=== PATIENT | female | born 1970 | race Caucasian/White ===

== ENCOUNTER 2018-10-29 12:25 | Emergency (ER) | payer MEDICARE, OTHER ==
[~2018-10-29] VITALS: Ht 167.6 cm; Wt 90.7 kg
--- NOTE | 2018-10-29 12:39 | ED Lower Extremity ---
General Stated Complaint: ANKLE PAIN Source: patient Exam Limitations: no limitations History of Present Illness Date Seen by Provider: Oct 29, 2018 Time Seen by Provider: 12:37 Initial Comments To ER with reports of right ankle pain. Insidious onset 2 days ago at work for [employer]. Pain is at the medial right ankle normal bilateral. No other complaints of pain or injury. No history of this. Onset: just prior to arrival Severity: moderate Pain/Injury Location: right ankle Method of Injury: unknown Modifying Factors: Worse With Movement Allergies and Home Medications Home Medications Hydrocodone/Acetaminophen 1 Each Tablet, 1 TAB PO Q4-6HR Prescribed by: KATHY NICE on 10/29/18 1325 Patient Home Medication List Home Medication List Reviewed: Yes Review of Systems Constitutional: see HPI EENTM: see HPI Respiratory: no symptoms reported Cardiovascular: no symptoms reported Genitourinary: no symptoms reported Musculoskeletal: see HPI Skin: no symptoms reported Psychiatric/Neurological: No Symptoms Reported Past Onkqzcv-Vzzbpe-Aqwpsw Hx Patient Social History Recent Foreign Travel: No Contact w/Someone Who Travel: No Physical Exam Vital Signs Capillary Refill : Height, Weight, BMI Height: '" Weight: lbs. oz. kg; BMI Method: General Appearance: WD/WN, no apparent distress HEENT: PERRL/EOMI, normal ENT inspection Respiratory: no respiratory distress, no accessory muscle use Hips: bilateral hip non-tender, bilateral hip normal inspection, bilateral hip normal range of motion Legs: bilateral leg non-tender, bilateral leg normal inspection, bilateral leg normal range of motion Knees: bilateral knee non-tender, bilateral knee normal inspection, bilateral knee normal range of motion Ankles: right ankle other (swelling to the medial aspect of the right ankle, no bruising no erythema. Tender to palpation. The anterior posterior and lateral aspect of the ankle are unremarkable.) Feet: bilateral foot non-tender, bilateral foot normal inspection, bilateral foot normal range of motion Neurologic/Psychiatric: alert, normal mood/affect, oriented x 3 Skin: normal color, warm/dry Progress/Results/Core Measures Results/Orders My Orders Orders - KATHY NICE MANAGER OF COMPLIANCE Ankle, Right, 3 Views (10/29/18 12:36) Departure Communication (Admissions) 1336-given a stirrup ankle brace. Impression Primary Impression: Ankle swelling Qualified Codes: M25.471 - Effusion, right ankle Disposition: 01 HOME, SELF-CARE Condition: Stable Departure-Patient Inst. Decision time for Depature: 12:38 Referrals: [facility] (PCP) Primary Care Physician Patient Instructions: Ankle Fracture, Ankle Sprain Add. Discharge Instructions: 1. Return to ER for any concerns 2. Stay off the ankle as much as possible. Ice pack to the area 30 minutes every 1-2 hours for the next few days. Tylenol or ibuprofen for pain. Scripts Hydrocodone/Acetaminophen ([place] 5-325 Tablet) 1 Each Tablet 1 TAB PO Q4-6HR for Pain MDD 10 TABS for 7 Days, #14 TAB Prov: KATHY NICE APRN 10/29/18 Work/School Note: Work Release Form Date Seen in the Emergency Department: Oct 29, 2018 Return to Work: Nov 01, 2018 KATHY NICE APRN Oct 29, 2018 12:39
--- NOTE | 2018-10-29 13:12 | Diagnostic Imaging Report ---
EXAMINATION: Right ankle at 12:50 p.m. INDICATION: Ankle pain. FINDINGS: Three views were obtained. There are no prior studies available for comparison. There is a small 3 mm calcification along the inferior margin of the medial malleolus. This finding may represent a small avulsion fracture although the age of this injury is indeterminate. There is soft tissue edema along the medial aspect of the ankle joint, however. No other fracture or acute bony abnormality is noted. The ankle mortise is not widened and the talar dome is smooth. IMPRESSION: 1. There is a small avulsion fracture along the inferior margin of the medial malleolus. The age of this injury however is indeterminate but could be acute/subacute in nature. Clinical follow-up is recommended. 2. There is no other acute bony abnormality appreciated. Dictated by: Dictated on workstation # [id number]
[2018-10-29] MEDS ORDERED: HYDR-4226 PO (13:25)
[2018-10-29 13:35] VITALS: BP 120/73
== END 2018-10-29 13:38 | disposition home or self-care (01) ==
LOC: EDUNIT# 12:25 → ER 12:27
DX: M25.471 Effusion, right ankle (principal)
CPT/HCPCS: 73610

== ENCOUNTER 2019-02-03 17:54 | Emergency (ER) | payer MEDICARE, OTHER ==
[~2019-02-03] VITALS: Ht 167 cm; Wt 90.9 kg
[~2019-02-03 17:54] MED LIST: HYDR-4226 PO
[2019-02-03] MEDS ORDERED: CEFD300C3 PO (18:57)
--- NOTE | 2019-02-03 18:57 | ED EENT ---
History of Present Illness General Chief Complaint: Ear Problems Stated Complaint: EARACHE Nursing Triage Note: Pt to triage with C/O left ear pain that radiates to jaw x 1 wk. Pt reports taking ibuprofen for pain, last taken 1600 today. Pt has Hx of ear infections. No discharge present at this time. Allergies and Home Medications Home Medications Hydrocodone/Acetaminophen 1 Each Tablet, 1 TAB PO Q4-6HR Prescribed by: KATHY NICE on 10/29/18 1325 Past Mvdanin-Suuhru-Dbhmqk Hx Patient Social History Alcohol Use: Denies Use Recreational Drug Use: No Smoking Status: Current Everyday Smoker 2nd Hand Smoke Exposure: Yes Recent Foreign Travel: No Contact w/Someone Who Travel: No Recent Infectious Disease Expo: No Recent Hopitalizations: No Physical Abuse: No Sexual Abuse: No Mistreated: No Fear: No Seasonal Allergies Seasonal Allergies: No Past Medical History Surgeries: Yes (ectopic , back surgery) Respiratory: No Cardiac: Yes Hypertension Neurological: No Genitourinary: No Gastrointestinal: No Musculoskeletal: No Endocrine: No HEENT: No Cancer: No Psychosocial: No Integumentary: No Blood Disorders: No Physical Exam Vital Signs Vital Signs - First Documented 02/03/19 18:17 Temp 37.1 Pulse 80 Resp 19 B/P (MAP) 120/78 (92) Pulse Ox 98 O2 Delivery Room Air Height, Weight, BMI Height: 5'6.00" Weight: 200lbs. oz. 90.949860jp; 32.00 BMI Method:Stated Progress/Results/Core Measures Results/Orders Vital Signs/I&O 02/03/19 18:17 Temp 37.1 Pulse 80 Resp 19 B/P (MAP) 120/78 (92) Pulse Ox 98 O2 Delivery Room Air Blood Pressure Mean: 92 Departure Impression Primary Impression: Otitis media, left Qualified Codes: H66.005 - Acute suppurative otitis media without spontaneous rupture of ear drum, recurrent, left ear Disposition: 01 HOME, SELF-CARE Condition: Improved Departure-Patient Inst. Decision time for Depature: 18:55 Referrals: RADHA SANCHEZ MD (PCP) Primary Care Physician JÚNIOR MARTINEZ (Family) Primary Care Physician Patient Instructions: Ear Infections (Otitis Media) (DC) Add. Discharge Instructions: Alternate between Tylenol 650 mg and ibuprofen 600 mg every 4 hours for pain or fever. Take antibiotics as prescribed. Follow-up with your primary care provider if symptoms are not improving or worsen. Return to emergency department for new, urgent health care needs. All discharge instructions reviewed with patient and/or family. Voiced understanding. Scripts Cefdinir (Cefdinir) 300 Mg Capsule 300 MG PO BID, #14 CAP 0 Refills Prov: LILY MIRANDA 02/03/19 LILY MIRANDA Feb 03, 2019 18:57
[2019-02-03 19:01] VITALS: BP 120/78
== END 2019-02-03 19:01 | disposition home or self-care (01) ==
LOC: EDUNIT# 17:54 → ER 17:55
DX: H66.92 Otitis media, unspecified, left ear (principal); I10 Essential (primary) hypertension; F17.200 Nicotine dependence, unspecified, uncomplicated
CPT/HCPCS: 99281

== ENCOUNTER 2019-04-01 06:17 | Emergency (ER) | payer MEDICARE ==
[~2019-04-01] VITALS: Ht 167 cm; Wt 98.0 kg
[~2019-04-01 06:17] MED LIST changes: +CEFD300C3 PO
--- NOTE | 2019-04-01 06:36 | ED Cough/URI ---
General Chief Complaint: Cough/Cold/Flu Symptoms Stated Complaint: SOB,COUGHING,CONGESTION Nursing Triage Note: Pt ambulates to [facility] 6 with c/o nonproductive cough x 3 days, fever/chills and body aches. Sepsis Screen: No Definite Risk History of Present Illness Date Seen by Provider: Apr 01, 2019 Time Seen by Provider: 06:25 Initial Comments 48-year-old female presents with cough, fever, chills, body aches. Patient reports that last week she started having a cough with the fevers chills and body aches. That is have improved. She reports now that she has some chest tightness, some shortness of breath, body aches but the fevers resolved. She reports that the chest tightness is been there for about 3 days. She is a smoker. She denies any history of COPD her inhaler use. She denies any chest pain, nausea, vomiting. Allergies and Home Medications Allergies Coded Allergies: lamotrigine (Verified Allergy, Unknown, 02/03/19) Home Medications Albuterol Sulfate 2.5 Mg/3 Ml Vial.neb, 2.5 MG INH Q4H PRN for WHEEZING Prescribed by: SKYLAR MCDANIEL on 04/01/19713 Azithromycin 250 Mg Tablet, 250 MG PO UD TAKE 2 TABLETS ON DAY ONE THEN TAKE 1 TABLET DAILY FOR FOUR MORE DAYS Prescribed by: SKYLAR MCDANIEL on 04/01/19713 Cefdinir 300 Mg Capsule, 300 MG PO BID Prescribed by: LILY MIRANDA on 02/03/19 1857 Hydrocodone/Acetaminophen 1 Each Tablet, 1 TAB PO Q4-6HR Prescribed by: KATHY NICE on 10/29/18 1325 Prednisone 20 Mg Tab, 40 MG PO DAILY Prescribed by: SKYLAR MCDANIEL on 04/01/19713 Patient Home Medication List Home Medication List Reviewed: Yes Review of Systems Review of Systems Constitutional: chills, fever Respiratory: cough, short of breath Gastrointestinal: no symptoms reported Genitourinary: no symptoms reported Musculoskeletal: see HPI Skin: no symptoms reported; No rash Psychiatric/Neurological: No Symptoms Reported Past Kfyznce-Gxdcgm-Qxrwem Hx Past Med/Social Hx: Reviewed Nursing Past Med/Soc Hx Patient Social History Alcohol Use: Denies Use Recreational Drug Use: No Smoking Status: Current Everyday Smoker 2nd Hand Smoke Exposure: Yes Recent Foreign Travel: No Contact w/Someone Who Travel: No Recent Infectious Disease Expo: No Recent Hopitalizations: No Physical Abuse: No Sexual Abuse: No Mistreated: No Fear: No Seasonal Allergies Seasonal Allergies: No Past Medical History Surgeries: Yes (ectopic , back surgery) Respiratory: No Cardiac: Yes Hypertension Neurological: No Genitourinary: No Gastrointestinal: No Musculoskeletal: No Endocrine: No HEENT: No Cancer: No Psychosocial: No Integumentary: No Blood Disorders: No Physical Exam Vital Signs - First Documented 04/01/19 06:24 Temp 37.0 Pulse 78 Resp 17 B/P (MAP) 115/95 (102) Pulse Ox 96 O2 Delivery Room Air Capillary Refill : Less Than 3 Seconds Height: 5'6.00" Weight: 200lbs. oz. 90.823453os; 35.00 BMI Method:Stated General Appearance: WD/WN, no apparent distress HEENT: PERRL/EOMI Neck: supple Respiratory: no respiratory distress, no accessory muscle use; No respiratory distress; other (mild decreased breath sounds, sporadic) Cardiovascular: normal peripheral pulses, regular rate, rhythm Gastrointestinal: non tender, soft Neurologic/Psychiatric: syrup blender II-XII nml as tested, alert, oriented x 3 Skin: normal color, warm/dry Progress/Results/Core Measures Suspected Sepsis Recent Fever Within 48 Hours: No Infection Criteria Present: None New/Unexplained Altered Menta: No Sepsis Screen: No Definite Risk SIRS Temperature: Pulse: 78 Respiratory Rate: 17 Laboratory Tests 04/01/19 06:37: White Blood Count 8.4 Blood Pressure 115 /95 Mean: 102 Laboratory Tests 04/01/19 06:37: Creatinine 0.66, Platelet Count 217 Results/Orders Lab Results Laboratory Tests Test 04/01/19 06:37 Range/Units White Blood Count 8.4 4.3-11.0 10^3/uL Red Blood Count 4.32 L 4.35-5.85 10^6/uL Hemoglobin 13.4 11.5-16.0 G/DL Hematocrit 40 35-52 % Mean Corpuscular Volume 92 80-99 FL Mean Corpuscular Hemoglobin 31 25-34 PG Mean Corpuscular Hemoglobin Concent 34 32-36 G/DL Red Cell Distribution Width 13.2 10.0-14.5 % Platelet Count 217 130-400 10^3/uL Mean Platelet Volume 9.9 7.4-10.4 FL Neutrophils (%) (Auto) 55 42-75 % Lymphocytes (%) (Auto) 33 12-44 % Monocytes (%) (Auto) 9 0-12 % Eosinophils (%) (Auto) 2 0-10 % Basophils (%) (Auto) 0 0-10 % Neutrophils # (Auto) 4.7 1.8-7.8 X 10^3 Lymphocytes # (Auto) 2.8 1.0-4.0 X 10^3 Monocytes # (Auto) 0.8 0.0-1.0 X 10^3 Eosinophils # (Auto) 0.2 0.0-0.3 10^3/uL Basophils # (Auto) 0.0 0.0-0.1 10^3/uL Sodium Level 139 135-145 MMOL/L Potassium Level 3.3 L 3.6-5.0 MMOL/L Chloride Level 104 98-107 MMOL/L Carbon Dioxide Level 24 21-32 MMOL/L Anion Gap 11 5-14 MMOL/L Blood Urea Nitrogen 4 L 7-18 MG/DL Creatinine 0.66 0.60-1.30 MG/DL Estimat Glomerular Filtration Rate > 60 BUN/Creatinine Ratio 6 Glucose Level 96 70-105 MG/DL Calcium Level 9.1 8.5-10.1 MG/DL Micro Results Microbiology 04/01/19 Influenza Types A,B Antigen (MARGARITA) - Final, Complete My Orders Orders - SKYLAR MCDANIEL DO Basic Metabolic Panel (04/01/19 06:26) Cbc With Automated Diff (04/01/19 06:26) Influenza A And B Antigens (04/01/19 06:26) Chest Pa/Lat (2 View) (04/01/19 06:26) Ekg Tracing (04/01/19 06:37) Albuterol/Ipra Inhalation Soln (Duoneb I (04/01/19 07:15) Svn Small Volume Nebulizer (04/01/19 07:15) Vital Signs/I&O 04/01/19 04/01/19 06:24 06:28 Temp 37.0 Pulse 78 Resp 17 B/P (MAP) 115/95 (102) Pulse Ox 96 O2 Delivery Room Air Room Air Capillary Refill : Less Than 3 Seconds Blood Pressure Mean: 102 POS ECG Initial ECG Impression Date: Apr 01, 2019 Initial ECG Impression Time: 06:35 Initial ECG Rate: 70 Initial ECG Rhythm: Normal Sinus Initial ECG Impression: Nonspecific Changes Departure Impression Primary Impression: Pneumonitis Disposition: 01 HOME, SELF-CARE Condition: Stable Departure-Patient Inst. Referrals: RADHA SANCHEZ MD (PCP) Primary Care Physician JÚNIOR MARTINEZ (Family) Primary Care Physician Patient Instructions: Pneumonitis Scripts Prednisone (Prednisone) 20 Mg Tab 40 MG PO DAILY, #6 TAB 0 Refills Prov: SKYLAR MCDANIEL DO 04/01/19 Azithromycin (Azithromycin) 250 Mg Tablet 250 MG PO UD, #6 TAB TAKE 2 TABLETS ON DAY ONE THEN TAKE 1 TABLET DAILY FOR FOUR MORE DAYS Prov: SKYLAR MCDANIEL DO 04/01/19 Albuterol Sulfate (Albuterol Sulfate) 2.5 Mg/3 Ml Vial.neb 2.5 MG INH Q4H PRN for WHEEZING, #50 EA 1 Refill Prov: SKYLAR MCDANIEL DO 04/01/19 SKYLAR MCDANIEL DO Apr 01, 2019 06:36 POS
[2019-04-01 06:48] LABS: BASOPHILS % (AUTO) 0 % (0-10); EOSINOPHILS # (AUTO) 0.2 10^3/uL (0.0-0.3); EOSINOPHILS % (AUTO) 2 % (0-10); HEMATOCRIT 40 % (35-52); HEMOGLOBIN 13.4 G/DL (11.5-16.0); LYMPHOCYTES # (AUTO) 2.8 X 10^3 (1.0-4.0); LYMPHOCYTES % (AUTO) 33 % (12-44); MEAN CORPUSCULAR HEMOGLOBIN 31 PG (25-34); MEAN CORPUSCULAR HGB CONC 34 G/DL (32-36); MEAN CORPUSCULAR VOLUME 92 FL (80-99); MEAN PLATELET VOLUME 9.9 FL (7.4-10.4); MONOCYTES # (AUTO) 0.8 X 10^3 (0.0-1.0); MONOCYTES % (AUTO) 9 % (0-12); NEUTROPHILS # (AUTO) 4.7 X 10^3 (1.8-7.8); NEUTROPHILS % (AUTO) 55 % (42-75); PLATELET COUNT 217 10^3/uL (130-400); RED CELL DISTRIBUTION WIDTH 13.2 % (10.0-14.5); WHITE BLOOD COUNT 8.4 10^3/uL (4.3-11.0)
--- NOTE | 2019-04-01 06:58 | Diagnostic Imaging Report ---
INDICATION: Cough PA and lateral views of the chest are obtained. No previous studies available at this time for comparison. Heart size and pulmonary vascularity are within normal limits. There is mild asymmetric increased density in the right perihilar region which may be due to mild pneumonitis. No consolidation, pneumothorax or pleural fluid is identified. IMPRESSION: Probable mild right perihilar pneumonitis without other acute abnormality. Dictated by: Dictated on workstation # [id number]
[2019-04-01 07:05] LABS: BUN/CREATININE RATIO 6; CALCIUM 9.1 MG/DL (8.5-10.1); CARBON DIOXIDE 24 MMOL/L (21-32); CHLORIDE 104 MMOL/L (98-107); CREATININE SERUM 0.66 MG/DL (0.60-1.30); GFR ESTIMATED > 60; GLUCOSE 96 MG/DL (70-105); POTASSIUM 3.3 MMOL/L (3.6-5.0); SODIUM 139 MMOL/L (135-145)
[2019-04-01] MEDS ORDERED: ALBU2.5V4 INH (07:14)
[2019-04-01] MEDS ORDERED: AZIT250T12 PO (07:14)
[2019-04-01] MEDS ORDERED: PRD20T PO (07:14)
[2019-04-01] MEDS ORDERED: RT-ALBUTEROL/IPRATROPIUM 3 ML (DUONEB) VIAL INH ONE (07:15)
[2019-04-01 07:33] VITALS: BP 108/54
== END 2019-04-01 07:33 | disposition home or self-care (01) ==
LOC: EDUNIT# 06:17 → ER 06:20
DX: J18.9 Pneumonia, unspecified organism (principal); I10 Essential (primary) hypertension; F17.200 Nicotine dependence, unspecified, uncomplicated; Z88.8 Allergy status to other drugs, medicaments and biological substances
CPT/HCPCS: 36415; 71046; 80048; 85025; 87804; 93005

== ENCOUNTER 2021-10-24 07:09 | Observation (INO) | payer MEDICARE ==
[~2021-10-24] VITALS: Ht 167.6 cm; Wt 90.8 kg
[~2021-10-24 07:09] MED LIST changes: +ALBU2.5V4 INH; +AZIT250T12 PO; +PRD20T PO
[2021-10-24] MEDS ORDERED: ONDANSETRON 4 MG/2 ML (SDV) Z0FRAN IVP PRN (11:30)
[2021-10-24] MEDS ORDERED: PATIENT MAY USE OWN MEDS, ALL PO SCH (11:30)
--- NOTE | 2021-10-24 12:03 | History & Physical-Hospitalist ---
History of Present Illness HPI/Chief Complaint Patient is a 51-year-old female with past medical history of hypertension and tobacco abuse who presented to outside hospital due to chest pain. She states she and her significant other were driving back to their house around 4 AM when she developed some chest pain. She reports she had had intermittently throughout the day but did not think much of it. It worsened overnight and she decided to take 2 baby aspirin. It started to radiate down her left arm to her shoulders and upper jaw. She then became nauseous and diaphoretic and decided to seek evaluation in the emergency department. She was found to have an elevated high-sensitivity troponin and was transferred here for evaluation. She was given nitro which improved her symptoms though during our exam she states she still has some mild central chest discomfort. Date Seen 10/24/21 Time Seen by a Provider: 12:02 Attending Physician Kelvin Thomas MD PCP Admitting Physician: Cali Thayer MD Attending Physician: Cali Thayer MD Referring Physician Date of Admission Oct 24, 2021 at 10:14 Home Medications & Allergies Home Medications Reviewed patient Home Medication Reconciliation performed by pharmacy medication reconciliations automation control technician and/or nursing. Patients Allergies have been reviewed. Allergies Allergies Coded Allergies lamotrigine (Verified Allergy, Unknown, 02/03/19) Past Cqxvwij-Tncqjk-Ozuuxq Hx Patient Social History Smoking Status: Current Everyday Smoker Seasonal Allergies Seasonal Allergies: No Past Medical History Hypertension Blood Disorders: No surgery- ectopic Family Medical History Reviewed Nursing Family Hx Heart Disease, Stroke Review of Systems Constitutional: No chills; diaphoresis; No fever EENTM: no symptoms reported Respiratory: No cough, No dyspnea on exertion, No hemoptysis, No orthopnea, No short of breath Cardiovascular: see HPI, chest pain; No edema, No Hx of Intervention, No palpitations, No syncope Gastrointestinal: nausea Genitourinary: no symptoms reported Musculoskeletal: no symptoms reported Skin: no symptoms reported Psychiatric/Neurological: No Symptoms Reported Physical Exam Physical Exam Vital Signs Vital Signs - First Documented 10/24/21 10/24/21 10:19 11:25 Temp 35.9 Pulse 55 Resp 23 B/P (MAP) 115/67 Pulse Ox 96 O2 Delivery Room Air Capillary Refill : Height, Weight, BMI Height: 5'6.00" Weight: 200lbs. oz. 90.668233hb; 35.00 BMI Method:Stated General Appearance: No Apparent Distress, WD/WN, Obese HEENT: PERRL/EOMI, Moist Mucous Membranes Neck: Normal Inspection, Supple; No JVD Respiratory: Chest Non Tender, Lungs Clear, No Accessory Muscle Use, No Respiratory Distress Cardiovascular: Regular Rate, Rhythm, No Murmur Gastrointestinal: Normal Bowel Sounds, Non Tender, Soft Extremity: Normal Capillary Refill, Non Tender Neurologic/Psychiatric: Alert, Oriented x3, Normal Mood/Affect Skin: Normal Color, Warm/Dry Results Results/Procedures Labs Laboratory Tests 10/25/21 04:14 Patient resulted labs reviewed. Imaging: Reviewed Imaging Report Assessment/Plan Admission Diagnosis NSTEMI Admission Status: Observation Reason for Inpatient Admission: see below Assessment and Plan NSTEMI Symptoms sound cardiac in nature Troponin checked here and is 0.[address] Valdez who recommended echo and likely cath 324mg ASA given at outside facility Nitropaste in place Telemetry Echo ordered Tobacco abuse Recommended cessation Diagnosis/Problems Diagnosis/Problems (1) Tobacco abuse (2) NSTEMI (non-ST elevated myocardial infarction) (3) Chest pain Clinical Quality Measures Smoking Cessation Counseling: Counseling-Symptomatic: 3-10 Minutes Other Options Discussed smoking cessation. 35 pack year history. Started smoking around 17 years old. Not ready to quit due to stress in life. PAO ZEPEDA MD Oct 24, 2021 12:02
--- NOTE | 2021-10-24 13:38 | Consultation-Cardiology ---
HPI-Cardiology Cardiology Consultation: Date of Consultation 10/24/21 Date of Admission 10/24/21 Attending Physician Radha Thomas MD Admitting Physician Admitting Physician: Cali Thayer MD Attending Physician: Cali Thayer MD Consulting Physician RADHA SINGER JR, MD HPI: Time Seen by a Provider: 16:00 Chief Complaint: REASON FOR CONSULTATION: Chest pain and abnormal troponin level. I had the pleasure of seeing Felecia on the cardiac stepdown unit at [facility] in [place], [place] today. She has no significant past medical history other than cigarette smoking. Early this morning she had [place] from [place]. While she was driving home she started developing subs ternal chest tightness associated with shortness of breath and diaphoresis. The chest discomfort persisted throughout her drive home. The chest discomfort radiated down her arms. By the time she got back to [place], [place], she still had chest discomfort and went to her local emergency room. During her evaluation she was found to have an elevated troponin level and was sent to our hospital for further evaluation. In the outside emergency room she was given sublingual nitroglycerin which helped bring her pain from a 20/10 down to a 5/10. She was then treated with nitroglycerin paste and her chest discomfort has come down to about a 1/10. However, the chest discomfort has never completely resolved. She does not recall ever having this sort of chest discomfort in the past. She did feel a little bit lightheaded but denies any syncope. She denies paroxysmal nocturnal dyspnea, orthopnea, palpitations, or lower extremity edema. After being admitted into our hospital, repeat troponin in our facility was also found to be elevated. Because of the chest discomfort and abnormal troponin level, a cardiology consultation was requested for consideration of cardiac catheterization. Certain portions of this document may have been dictated utilizing voice recognition technology. Inherent to this technology, typographical and grammatical errors may exist. As much as I am diligent to identify and correct these mistakes, some errors may remain in the document. Review of Systems-Cardiology Review of Systems Other comments Review of 10 organ systems is as per the history of present illness, otherwise negative. BYM-[id number]-[id number] Hx Patient Social History Smoking Status: Current Everyday Smoker 2nd Hand Smoke Exposure: Yes Past Medical History PMH As described under Assessment. Family Medical History Family Medical History: The patient does not know of any family history of premature coronary artery disease in first-degree relatives. Allergies and Home Medications Allergies Coded Allergies: lamotrigine (Verified Allergy, Unknown, 02/03/19) Patient Home Medication List Home Medication List Reviewed: Yes Ibuprofen (Ibuprofen) 200 Mg Tablet, 400-600 MG PO Q8H PRN for PAIN-MILD (1-4), (Reported) Entered as Reported by: BLAINE MANUEL on 10/24/21 1525 Last Action: Reviewed Discontinued Medications Albuterol Sulfate (Albuterol Sulfate) 2.5 Mg/3 Ml Vial.neb, 2.5 MG INH Q4H PRN for WHEEZING Discontinued Reason: No Longer Taking Prescribed by: SKYLAR MCDANIEL on 04/01/19713 Last Action: Discontinued Azithromycin (Azithromycin) 250 Mg Tablet, 250 MG PO UD Discontinued Reason: No Longer Taking Prescribed by: SKYLAR MCDANIEL on 04/01/19713 Last Action: Discontinued Cefdinir (Cefdinir) 300 Mg Capsule, 300 MG PO BID Discontinued Reason: Duplicate Order Prescribed by: LILY MIRANDA on 02/03/19 1857 Last Action: Discontinued Hydrocodone/Acetaminophen (Hydrocodone/Acetaminophen 5 MG/325 MG TAB) 1 Each Tablet, 1 TAB PO Q4-6HR Discontinued Reason: No Longer Taking Prescribed by: KATHY NICE on 10/29/18 1325 Last Action: Discontinued Prednisone (Prednisone) 20 Mg Tab, 40 MG PO DAILY Discontinued Reason: No Longer Taking Prescribed by: SKYLAR MCDANIEL on 04/01/19713 Last Action: Discontinued Exam Vital Signs Vital Signs Date Time Temp Pulse Resp B/P (MAP) Pulse Ox O2 Delivery O2 Flow Rate FiO2 10/24/21 16:00 36.1 56 18 116/75 98 Room Air Physical Exam General: Alert. No acute distress. Well nourished and appears stated age. She is overweight. Eye: Extraocular movements are intact. Conjunctivae are clear. There are no xanthelasma. HENT: Normocephalic. Atraumatic. Carotid pulsations 2/2 without bruits. Neck: Jugular venous pressure does not appear elevated. No thyromegaly appreciated. Respiratory: Lungs are clear to auscultation. Respirations are non-labored. Breath sounds are equal. Symmetrical chest wall expansion. Cardiovascular: Normal rate. Regular rhythm. No murmur. No gallop. Point of maximal impulse is not appear displaced. Good pulses equal in all extremities. No edema. Gastrointestinal: Soft. Normal bowel sounds. Skin: Skin turgor is normal. There is no pallor. Musculoskeletal: No kyphosis or scoliosis appreciated. Neurologic: Alert and oriented to person, place, time. Cranial nerves 3-12 appear grossly intact. The patient has good motor tone strength in the upper and lower extremities bilaterally. Psychiatric: Cooperative. Appropriate mood & affect. Labs Laboratory Tests Test 10/24/21 11:55 Range/Units Troponin I 0.245 H <0.028 NG/ML Radiology ECHOCARDIOGRAM (10/24/2021): 1. Left ventricle: The cavity size is normal. Wall thickness is normal. Systolic function is normal. The estimated ejection fraction is 50-55%. There were no regional wall motion abnormalities identified. Left ventricular diastolic function parameters are normal. 2. Right atrium: The right atrium is mildly dilated with an area of 19 cm. 3. Pulmonary arteries: The estimated pulmonary artery systolic pressure is 20 mmHg assuming a right atrial pressure of 5 mmHg. ECG Impression ECG Comment Sinus rhythm with nonspecific anterior T wave changes. Diagnosis/Problems Diagnosis/Problems (1) Chest pain Assessment & Plan: Exact etiology unclear. She has nonspecific T wave changes on her electrocardiogram but does have an elevated troponin level. This is concerning for an acute coronary syndrome. She has been treated with aspirin. Her chest discomfort has never completely resolved. In light of these findings, I recommend further evaluation with a cardiac catheterization. I have explained the benefits and risks of the procedure to the patient and she is in agreement to proceed. (2) Troponin level elevated Assessment & Plan: She may be suffering a non-ST elevation myocardial infa rction. We will proceed as above. (3) Abnormal electrocardiogram Assessment & Plan: As above, her electrocardiogram from our hospital shows some nonspecific anterior T wave changes. We will proceed with a cardiac catheterization as above. (4) Cigarette smoker Assessment & Plan: She needs to work on quitting smoking. She was counseled in this regard. RADHA SINGER JR, MD Oct 24, 2021 13:38
[2021-10-24] MEDS ORDERED: NS IV 1000 ML 1,000 ML IV ONE (14:00)
[2021-10-24] MEDS ORDERED: CATHETER FLUSH 10 ML SYR IV PRN (14:00)
[2021-10-24] MEDS ORDERED: NITROGLYCERIN 0.4 MG SL TABS BTL 25'S SL PRN (14:15)
[2021-10-24] MEDS ORDERED: IBUP-2473 PO (15:25)
--- NOTE | 2021-10-24 16:12 | Pre-Op Note & Conscious Sedat ---
Pre-Operative Progress Note H&P Reviewed The H&P was reviewed, patient examined and no changes noted. Date H&P Reviewed: Oct 24, 2021 Time H&P Reviewed: 16:12 Pre-Op Diagnosis: NSTEMI Conscious Sedation Pre-Proced ASA Score 2 For ASA 3 and 4: Consider anesthesia and medical clearance. Also, for patients with a history of failed moderate sedation consider anesthesia. Airway Lungs Heart ASA score ASA 1: a normal healthy patient ASA 2: a patient with a mild systemic disease (mid diabetes, controlled hypertension, obesity ASA 3: a patient with a severe systemic disease that limits activity (angina, COPD, prior Myocardial infarction) ASA 4: a patient with an incapacitating disease that is a constant threat to life (CHF, renal failure) ASA 5: a moribund patient not expected to survive 24 hrs. (ruptured aneurysm) ASA 6: a declared brain- patient whose organs are being harvested. For emergent operations, add the letter E after the classification Mallampati Classification Grade 2 Sedation Plan Analgesia, Amnesia, Plan communicated to team members, Discussed options with patient/fam, Discussed risks with patient/fam The patient is an appropriate candidate to undergo the planned procedure, sedation, and anesthesia. The patient immediately re-assessed prior to indication. RADHA SINGER JR, MD Oct 24, 2021 16:12
[2021-10-24] MEDS ORDERED: VERAPAMIL 5 MG/2 ML (CALAN) VIAL IV ONE (16:19)
[2021-10-24] MEDS ORDERED: HEParin 1000 UNIT/ML (10ML VIAL) FOR BOLUS ONE (16:20)
[2021-10-24] MEDS ORDERED: NITRO DRIP 25000 MCG/D5W 250 ML IV ONE (16:20)
[2021-10-24] MEDS ORDERED: fentaNYL INJ 100 MCG/2 ML AMP ONE (16:20)
[2021-10-24] MEDS ORDERED: LIDOCAINE 1% INJ 20 ML VIAL ONE (16:20)
[2021-10-24] MEDS ORDERED: MIDAZOLAM 5 MG/5 ML (VERSED) VIAL ONE (16:20)
[2021-10-24] MEDS ORDERED: HEParin (CATH LAB) 2,000 ML IV ONE (16:21)
[2021-10-24] MEDS ORDERED: TICAGRELOR 90 MG TABLET (BRILINTA) PO ONE (17:37)
[2021-10-24] MEDS ORDERED: NS IV 1000 ML 1,000 ML ONE (18:20)
--- NOTE | 2021-10-24 18:20 | Cardiac Cath Report ---
CARDIAC CATHETERIZATION DATE OF PROCEDURE: 10/24/2021 INDICATION: NSTEMI. HISTORY: The patient is a 51 year old female with no previously known history of coronary artery disease. Early this morning she presented to an outside spital with substernal chest discomfort associated with diaphoresis and shortness of breath. She was found to have an elevated high-sensitivity troponin level but no evidence of ischemic changes on her electrocardiogram. Due to persistent chest discomfort and the abnormal troponin level, she was transferred to our facility for further treatment. Soon after arrival at our facility, she was again found to have an elevated troponin level. Her chest discomfort had improved with topical nitrates but not completely resolved. Therefore, in light of the probable non-ST elevation myocardial infarction, she is now referred for further evaluation with a cardiac catheterization. Given her current clinical status, she is considered moderately frail. She has no his tory of heart failure. PROCEDURES PERFORMED: 1. Left heart catheterization with hemodynamic measurements. 2. Diagnostic [place] coronary angiography. 3. Drug-eluting stent placement to distal right coronary artery. This was the ischemia related vessel for the myocardial infarction. PROCEDURE DESCRIPTION: After informed consent and in the fasting state, left heart catheterization was performed through the right femoral artery utilizing a 6 [place] system by percutaneous approach. I did first access the right radial artery with a 6 [place] system by percutaneous approach but there was a significant amount of radial artery spasm and I could not even get good blood flow back through the sheath. Therefore, the sheath was removed and a radial band was applied for hemostasis. Standard 5 [place] Citizen Pam catheters were utilized for the diagnostic portion of the procedure. A 6 [place] JR4 guide catheter was utilized for the percutaneous coronary intervention. All catheters were exchanged over a guidewire. Following the procedure, a right femoral angiogram was performed which showed the right femoral artery to be free of significant disease and the sheath entered just above the bifurcation. A Mynx closure device was deployed with good hemostasis. RESULTS: HEMODYNAMICS: The aortic pressure was 119/55 mmHg. The left ventricular pressure was 135/0 mmHg with a left ventricular end-diastolic pressure of 17 mmHg. There was no significant pressure gradient upon pullback across the aortic valve. CORONARY ANGIOGRAPHY: Left main coronary artery: Long and free of significant disease. Left anterior descending coronary artery: Free of significant disease. There was a small second diagonal branch which contained a lucent 50% stenosis proximally with MARI-2 flow. However, this was approximately a 1.75 mm vessel. Left circumflex coronary artery: Small but free of significant disease. Right coronary artery: Dominant and there was a 40% stenosis in the midsegment followed by a 99% stenosis distally just proximal to the bifurcation with MARI-2 flow. PERCUTANEOUS CORONARY INTERVENTION: Percutaneous coronary intervention was carried out on the distal right coronary artery through a 6 [place] JR4 guide catheter. The lesion was successfully crossed with a Kerlink guidewire. I subsequently performed coronary angioplasty with a 2.5 x 12 mm Trek balloon at a pressure of 6 andreea for 2 inflations. Flow was improved. I subsequently deployed a 3 x 12 mm drug-eluting Xience Skypoint stent at a pressure of 16 andreea. Following coronary stent placement, there was 0% residual stenosis with MARI-3 flow. IMPRESSION: 1. Normal central aortic pressure with mildly elevated left ventricular end- diastolic pressure. 2. There was a 99% stenosis in the distal right coronary artery. This was the ischemia related vessel for the acute non-ST elevation myocardial infarction. 3. Status post drug-eluting stent placement to the distal right coronary artery with a 3 x 12 mm Xience Skypoint stent was 0% residual stenosis and MARI-3 flow. 4. There is moderate residual disease in a small diagonal branch and the mid right coronary artery as outlined above. 5. The patient is known to have normal left ventricular systolic function with an estimated ejection fraction of 50-55% by echocardiogram performed earlier today. Certain portions of this document may have been dictated utilizing voice recognition technology. Inherent to this technology, typographical and grammatical errors may exist. As much as I am diligent to identify and correct these mistakes, some errors may remain in the document. RADHA SINGER JR, MD Oct 24, 2021 18:20
[2021-10-24] MEDS: NS IV 1000 ML 1,000 ML IV SCH (18:53)
[2021-10-24] MEDS ORDERED: TICAGRELOR 90 MG TABLET (BRILINTA) PO SCH (21:00)
[2021-10-24] MEDS ORDERED: ROSUVASTATIN 20 MG (CRESTOR) TABLET PO SCH (21:00)
[2021-10-24] MEDS ORDERED: ENOXAPARIN 40 MG/0.4 ML (LOVENOX) SYR SC SCH (21:00)
[2021-10-25 04:26] LABS: HEMATOCRIT 39 % (35-52); HEMOGLOBIN 13.3 g/dL (11.5-16.0); MEAN CORPUSCULAR HEMOGLOBIN 31 pg (25-34); MEAN CORPUSCULAR HGB CONC 34 g/dL (32-36); MEAN CORPUSCULAR VOLUME 91 fL (80-99); PLATELET COUNT 225 10^3/uL (130-400); WHITE BLOOD COUNT 11.1 10^3/uL (4.3-11.0)
[2021-10-25 04:54] LABS: POTASSIUM 3.6 MMOL/L (3.6-5.0)
[2021-10-25 04:55] LABS: CALCIUM 8.7 MG/DL (8.5-10.1)
[2021-10-25 04:59] LABS: CREATININE SERUM 0.7 MG/DL (0.60-1.30)
[2021-10-25] MEDS: NS IV 1000 ML 1,000 ML IV SCH (05:57)
[2021-10-25] MEDS ORDERED: TICAGRELOR 90 MG TABLET (BRILINTA) PO SCH (06:00)
[2021-10-25] MEDS ORDERED: TICA90TA PO (08:08)
[2021-10-25] MEDS ORDERED: NITR0.4T42 SL (08:08)
[2021-10-25] MEDS ORDERED: ASPI-1238 PO (08:08)
[2021-10-25] MEDS ORDERED: CARV3.122 PO (08:08)
[2021-10-25] MEDS ORDERED: ROSU20TA32 PO (08:08)
--- NOTE | 2021-10-25 08:30 | Cardiology Progress Note ---
Progress Note-Cardiology Events since last exam Date Seen by Provider: Oct 25, 2021 Time Seen by Provider: 08:25 Events since last exam I am following her due to non-ST elevation myocardial infarction. Her chest discomfort resolved following the stent procedure. She denies dyspnea, palpitations, syncope, or ankle edema. Her femoral access site does not have any significant pain. Certain portions of this document may have been dictated utilizing voice recognition technology. Inherent to this technology, typographical and grammatical errors may exist. As much as I am diligent to identify and correct these mistakes, some errors may remain in the document. Vitals Last set of Vitals Signs Vital Signs 10/25/21 07:51 Temp 36.4 Pulse 63 Resp 16 B/P (MAP) 107/76 Pulse Ox 97 O2 Delivery Room Air Labs Labs Laboratory Tests 10/25/21 04:14 Exam Vital Signs Vital Signs Date Time Temp Pulse Resp B/P (MAP) Pulse Ox O2 Delivery O2 Flow Rate FiO2 10/25/21 07:51 36.4 63 16 107/76 97 Room Air Physical Exam General: Alert. No acute distress. She is obese. Eye: No xanthelasma. HENT: Normocephalic. Neck: Jugular venous pressure does not appear elevated. Respiratory: Lungs are clear to auscultation. Respirations are non-labored. Breath sounds are equal. Symmetrical chest wall expansion. Cardiovascular: Normal rate. Regular rhythm. No murmur. No gallop. No edema. Gastrointestinal: Soft. Normal bowel sounds. Skin: Warm. Dry. Neurologic: Alert and oriented to person, place, time. Cranial nerves 3-11 grossly intact. Psychiatric: Cooperative. Appropriate mood & affect. Labs Laboratory Tests Test 10/24/21 11:55 10/24/21 16:39 10/25/21 04:14 Range/Units Troponin I 0.245 H <0.028 NG/ML Urine Test NEGATIVE NEGATIVE White Blood Count 11.1 H 4.3-11.0 10^3/uL Red Blood Count 4.26 3.80-5.11 10^6/uL Hemoglobin 13.3 11.5-16.0 g/dL Hematocrit 39 35-52 % Mean Corpuscular Volume 91 80-99 fL Mean Corpuscular Hemoglobin 31 25-34 pg Mean Corpuscular Hemoglobin Concent 34 32-36 g/dL Red Cell Distribution Width 13.6 10.0-14.5 % Platelet Count 225 130-400 10^3/uL Mean Platelet Volume 10.0 9.0-12.2 fL Sodium Level 139 135-145 MMOL/L Potassium Level 3.6 3.6-5.0 MMOL/L Chloride Level 107 98-107 MMOL/L Carbon Dioxide Level 23 21-32 MMOL/L Anion Gap 9 5-14 MMOL/L Blood Urea Nitrogen 11 7-18 MG/DL Creatinine 0.70 0.60-1.30 MG/DL Estimat Glomerular Filtration Rate 106 BUN/Creatinine Ratio 16 Glucose Level 86 70-105 MG/DL Calcium Level 8.7 8.5-10.1 MG/DL Triglycerides Level 143 <150 MG/DL Cholesterol Level 233 H < 200 MG/DL LDL Cholesterol Direct 184 H 1-129 MG/DL VLDL Cholesterol 29 5-40 MG/DL HDL Cholesterol 42 40-60 MG/DL Radiology Electrocardiogram from this morning shows sinus rhythm with nonspecific inferior T wave changes. No Q waves. Diagnosis/Problems Diagnosis/Problems (1) Non-ST elevation myocardial infarction (NSTEMI), initial care episode Assessment & Plan: She suffered a non-ST elevation myocardial infarction due to subtotal occlusion of the distal right coronary artery that was treated with 1 drug-eluting stent. Her chest discomfort has resolved. She has a normal ejection fraction. She is not having any significant arrhythmias. She does have moderate residual disease in a small diagonal branch in the mid right coronary artery that will be treated medically. She is on aspirin, ticagrelor, carvedilol and rosuvastatin. From a cardiac standpoint, she can be discharged home. She can return to work on Friday. She should follow-up with me in my office in 1 month. I sent all of her cardiac prescriptions to her pharmacy in [place]. I told her that if she does not have health insurance within 30 days, then I can change the Brilinta over to clopidogrel but she will need to notify my office in advance. I did give her a coupon for 30 days free of Brilinta. This coupon is good for patients without insurance. (2) Abnormal electrocardiogram Assessment & Plan: Her electrocardiogram from this morning shows sinus rhythm with nonspecific inferior T wave changes as above. (3) Mixed hyperlipidemia Assessment & Plan: Her LDL level is markedly elevated. I have placed her on intensive dose statin medication. I will arrange for a follow-up lipid panel after I see her in the office. (4) Cigarette smoker Assessment & Plan: She needs to work on quitting smoking. She was counseled in this regard. RADHA SINGER JR, MD Oct 25, 2021 08:30
--- NOTE | 2021-10-25 08:43 | Discharge Summary ---
Diagnosis/Chief Complaint Date of Admission Oct 24, 2021 at 10:14 Date of Discharge Discharge Date: Oct 25, 2021 Admission Diagnosis NSTEMI Primary Care No,Local Physician Discharge Diagnosis (1) Non-ST elevation myocardial infarction (NSTEMI), initial care episode Assessment & Plan: She suffered a non-ST elevation myocardial infarction due to subtotal occlusion of the distal right coronary artery that was treated with 1 drug-eluting stent. Her chest discomfort has resolved. She has a normal ejection fraction. She is not having any significant arrhythmias. She does have moderate residual disease in a small diagonal branch in the mid right coronary artery that will be treated medically. She is on aspirin, ticagrelor, carvedilol and rosuvastatin. From a cardiac standpoint, she can be discharged home. She can return to work on Friday. She should follow-up with me in my office in 1 month. I sent all of her cardiac prescriptions to her pharmacy in [place]. I told her that if she does not have health insurance within 30 days, then I can change the Brilinta over to clopidogrel but she will need to notify my office in advance. I did give her a coupon for 30 days free of Brilinta. This coupon is good for patients without insurance. (2) Abnormal electrocardiogram Assessment & Plan: Her electrocardiogram from this morning shows sinus rhythm with nonspecific inferior T wave changes as above. (3) Mixed hyperlipidemia Assessment & Plan: Her LDL level is markedly elevated. I have placed her on intensive dose statin medication. I will arrange for a follow-up lipid panel after I see her in the office. (4) Cigarette smoker Assessment & Plan: She needs to work on quitting smoking. She was counseled in this regard. Discharge Summary Procedures/Consulations Dr Valdez-Cardiology Discharge Physical Exam Allergies: Coded Allergies: lamotrigine (Verified Allergy, Unknown, 02/03/19) Vitals & I&Os Vital Signs Date Time Temp Pulse Resp B/P (MAP) Pulse Ox O2 Delivery O2 Flow Rate FiO2 10/25/21 07:51 36.4 63 16 107/76 97 Room Air General Appearance: No Apparent Distress, WD/WN Cardiovascular: Regular Rate, Rhythm, No Murmur Neurologic/Psychiatric: Alert, Oriented x3 Hospital Course Patient was admitted to the hospital secondary to chest pain with elevated troponin concerning for an NSTEMI. Despite treatment with nitroglycerin her pain improved but was persistent and she had a troponin that was trending up. She was taken to [facility] which revealed a 99% lesion in the distal RCA which was stented. She tolerated this well and was discharged home in stable improved condition to follow-up with her primary care doctor and Dr. Valdez. She was instructed multiple times on the importance of smoking cessation as well. Labs (last 24 hrs) Laboratory Tests 10/24/21 11:55: Troponin I 0.245H 10/24/21 16:39: Urine Test NEGATIVE 10/25/21 04:14: White Blood Count 11.1H, Red Blood Count 4.26, Hemoglobin 13.3, Hematocrit 39, Mean Corpuscular Volume 91, Mean Corpuscular Hemoglobin 31, Mean Corpuscular Hemoglobin Concent 34, Red Cell Distribution Width 13.6, Platelet Count 225, Mean Platelet Volume 10.0, Sodium Level 139, Potassium Level 3.6, Chloride Level 107, Carbon Dioxide Level 23, Anion Gap 9, Blood Urea Nitrogen 11, Creatinine 0.70, Estimat Glomerular Filtration Rate 106, BUN/Creatinine Ratio 16, Glucose Level 86, Calcium Level 8.7, Triglycerides Level 143, Cholesterol Level 233H, LDL Cholesterol Direct 184H, VLDL Cholesterol 29, HDL Cholesterol 42 Patient resulted labs reviewed. Pending Labs Laboratory Tests 10/25/21 04:14: White Blood Count 11.1, Red Blood Count 4.26, Hemoglobin 13.3, Hematocrit 39, Mean Corpuscular Volume 91, Mean Corpuscular Hemoglobin 31, Mean Corpuscular Hemoglobin Concent 34, Red Cell Distribution Width 13.6, Platelet Count 225, Mean Platelet Volume 10.0, Sodium Level 139, Potassium Level 3.6, Chloride Level 107, Carbon Dioxide Level 23, Anion Gap 9, Blood Urea Nitrogen 11, Creatinine 0.70, Estimat Glomerular Filtration Rate 106, BUN/Creatinine Ratio 16, Glucose Level 86, Calcium Level 8.7, Triglycerides Level 143, Cholesterol Level 233, LDL Cholesterol Direct 184, VLDL Cholesterol 29, HDL Cholesterol 42 Imaging: Reviewed Imaging Report Discussion & Recommendations Discharge Planning: >30 minutes discharge planning Discharge Home Medications: Active Scripts Active Aspirin EC (Aspirin) 81 Mg Tablet.dr 81 Mg PO DAILY Carvedilol 3.125 Mg Tablet 3.125 Mg PO BID Nitroglycerin 0.4 Mg Tab.subl 0 Mg SL NEEDED PRN Rosuvastatin Calcium 20 Mg Tablet 20 Mg PO HS Brilinta (Ticagrelor) 90 Mg Tablet 90 Mg PO Q12H Reported Ibuprofen 200 Mg Tablet 400-600 Mg PO Q8H PRN Instructions to patient/family Please see electronic discharge instructions given to patient. Clinical Quality Measures Smoking Cessation Counseling: Counseling-Symptomatic: 3-10 Minutes PAO ZEPEDA MD Oct 25, 2021 08:43
--- NOTE | 2021-10-25 08:44 | Discharge Inst-Simple/Standard ---
Discharge Inst-Standard Discharge Medications New, Converted or Re-Newed RX: Transmitted to Pharmacy Patient Instructions/Follow Up Plan of Care/Instructions/FU: Please continue to take your medications as written. Please follow up with your primary care doctor to follow up this hospital stay. Activity as Tolerated: Yes Discharge Diet: Cardiac Diet Return to The Hospital For: Chest pain, shortness of breath, fever, weakness, if you feel you are getting worse. PAO ZEPEDA MD Oct 25, 2021 08:44
[2021-10-25] MEDS ORDERED: ASPIRIN E.C. 81 MG (ECOTRIN) TAB PO SCH (09:00)
== END 2021-10-25 10:05 | disposition home or self-care (01) ==
LOC: CSD 10:14
PROVIDERS: ADMIT Internal Medicine; ATTEND Internal Medicine
DX: I21.4 Non-ST elevation (NSTEMI) myocardial infarction (principal); E78.2 Mixed hyperlipidemia; I25.10 Atherosclerotic heart disease of native coronary artery without angina pectoris; R94.31 Abnormal electrocardiogram [ECG] [EKG]; F17.210 Nicotine dependence, cigarettes, uncomplicated; R77.8 Other specified abnormalities of plasma proteins
CPT/HCPCS: 80048; 80061; 84484; 84703; 85027; 93005 ×2; 93306; 93458; 96372; C1725; C1760; C1874; C1887; C1894; C9606; G0378; G0379; 36415

== ENCOUNTER 2022-02-06 21:49 | Observation (INO) | payer MEDICARE ==
[~2022-02-06] VITALS: Ht 167.7 cm; Wt 85.6 kg
[~2022-02-06 21:49] MED LIST changes: +ASPI-1238 PO; +CARV3.122 PO; +IBUP-2473 PO; +NITR0.4T42 SL; +ROSU20TA32 PO; +TICA90TA PO
[2022-02-06] MEDS ORDERED: ASPIRIN 81 MG CHEW (CHILDREN'S ASA) PO ONE (22:15)
[2022-02-06] MEDS ORDERED: CLOPIDOGREL 75 MG (PLAVIX) TABLET PO ONE ×2 (22:15→23:30)
--- NOTE | 2022-02-06 22:16 | ED Chest Pain ---
General Chief Complaint: Cough/Cold/Flu Symptoms Stated Complaint: CHEST PAIN Nursing Triage Note: PT ARRIVAL TO ER FROM WORK WITH COMPLAINT OF CHEST PAIN. PT STATES THAT SHE WAS WORKING WHEN THE PAIN STARTED. PAIN IS A HEAVINESS/PRESSURE IN LEFT CHEST AND SHOULDER AREA. PAIN AT 7/10. PAIN HAS BEEN CONSTANT. PATIENT DOES HAVE STENT THAT WAS PLACED IN OCTOBER OF THIS YEAR. 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 PATIENT DID TAKE 1/2 OF ADULT ASA PRIOR TO ARRIVAL. PT DENIES SOA, NAUSEA, OR VOMITING. Source: patient Exam Limitations: no limitations History of Present Illness Date Seen by Provider: Feb 06, 2022 Time Seen by Provider: 21:54 Initial Comments Patient to the ER by private conveyance from home chief complaint is having some tightness and pain in her left chest without any nausea. She does have some radiation to her left arm. She had a heart attack and stent placed in October, [address] Valdez. At that time she was having pain in the same place with radiation to both arms was much more severe. Today was a max of 8 out of 10 as she exerted herself. After she rested it is down to a 5 out of 10. She states that she took half of a 325 mg aspirin. She did not take any nitrogly cerin because it also drops her blood pressure. She has been out of her Plavix, statin and blood pressure medicines for the past 2 to 3 weeks. 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 She says work has been very busy and she was working very hard trying to get her work done prior to 1899 when the chest pain began. She had a drug-eluting stent placed in her distal right coronary artery for 99% stenosis. The patient does not follow with a primary care provider. She says she has been to [facility] 1 time for the walk-in clinic for an earache. Allergies and Home Medications Allergies Coded Allergies: coffee (Coffea arabica) (Unverified Allergy, Unknown, HIVES, 10/25/21) lamotrigine (Verified Allergy, Unknown, 02/03/19) Patient Home Medication List Home Medication List Reviewed: Yes Aspirin (Aspirin EC) 81 Mg Tablet., 81 MG PO DAILY Prescribed by: RADHA VALDEZ JR, MD on 10/25/21 0808 Carvedilol (Carvedilol) 3.125 Mg Tablet, 3.125 MG PO BID Prescribed by: RADHA VALDEZ JR, MD on 10/25/21 08 Ibuprofen (Ibuprofen) 200 Mg Tablet, 400-600 MG PO Q8H PRN for PAIN-MILD (1-4), (Reported) Entered as Reported by: BLAINE MANUEL on 10/24/21 1525 Nitroglycerin (Nitroglycerin) 0.4 Mg Tab.subl, 0 MG SL NEEDED PRN for chest pain Prescribed by: RADHA VALDEZ JR, MD on 10/25/21 08 Rosuvastatin Calcium (Rosuvastatin Calcium) 20 Mg Tablet, 20 MG PO HS Prescribed by: RADHA VALDEZ JR, MD on 10/25/21 08 Ticagrelor (Brilinta) 90 Mg Tablet, 90 MG PO Q12H Prescribed by: RADHA VALDEZ JR, MD on 10/25/21 08 Review of Systems Review of Systems Constitutional: No chills, No fever EENTM: No Blurred Vision, No Double Vision Respiratory: Denies Cough, Denies Shortness of Air, Denies SOA at Rest Cardiovascular: Denies Chest Pain, Denies Lightheadedness Gastrointestinal: Denies Constipated, Denies Diarrhea, Denies Nausea Genitourinary: Denies Discharge, Denies Drainage Musculoskeletal: No back pain, No joint pain Skin: No pruritus, No rash Psychiatric/Neurological: Denies Headache, Denies Numbness, Denies Paresthesia All Other Systems Reviewed Negative Unless Noted: Yes Past Afkvdve-Qjkqip-Lcgyqa Hx Patient Social History Tobacco Use?: Yes Tobacco type used: Cigarettes Smoking Status: Current Everyday Smoker Use of E-Cig and/or Vaping dev: No Substance use?: No Alcohol Use?: No Pt feels they are or have been: No Immunizations Up To Date Influenza Vaccine Up-to-Date: No; Not Current Seasonal Allergies Seasonal Allergies: No Past Medical History Surgeries: Yes (ectopic , back surgery) Respiratory: No Cardiac: Yes Hypertension Neurological: No Genitourinary: No Gastrointestinal: No Musculoskeletal: No Endocrine: No HEENT: No Cancer: No Psychosocial: No Integumentary: No Blood Disorders: No Family Medical History Heart Disease, Stroke Physical Exam Vital Signs Vital Signs - First Documented 02/06/22 21:53 Pulse 74 Resp 18 B/P (MAP) 124/91 (102) Pulse Ox 97 O2 Delivery Room Air Capillary Refill : Less Than 3 Seconds Height, Weight, BMI Height: 5'6.00" Weight: 200lbs. oz. [id number]; 32.32 BMI Method:Stated General Appearance: No Apparent Distress, WD/WN HEENT: PERRL/EOMI, Pharynx Normal, Moist Mucous Membranes Neck: Full Range of Motion, Normal Inspection, Non Tender Respiratory: Lungs Clear, Normal Breath Sounds, No Accessory Muscle Use, No Respiratory Distress Cardiovascular: Regular Rate, Rhythm, No Edema, Normal Peripheral Pulses Extremity: Normal Capillary Refill, Normal Inspection, No Pedal Edema Neurologic/Psychiatric: Alert, Oriented x3 Progress/Results/Core Measures Results/Orders Lab Results Laboratory Tests Test 02/06/22 21:58 Range/Units White Blood Count 8.3 4.3-11.0 10^3/uL Red Blood Count 4.90 3.80-5.11 10^6/uL Hemoglobin 14.7 11.5-16.0 g/dL Hematocrit 43 35-52 % Mean Corpuscular Volume 88 80-99 fL Mean Corpuscular Hemoglobin 30 25-34 pg Mean Corpuscular Hemoglobin Concent 34 32-36 g/dL Red Cell Distribution Width 13.2 10.0-14.5 % Platelet Count 255 130-400 10^3/uL Mean Platelet Volume 9.8 9.0-12.2 fL Immature Granulocyte % (Auto) 0 % Neutrophils (%) (Auto) 49 42-75 % Lymphocytes (%) (Auto) 41 12-44 % Monocytes (%) (Auto) 7 0-12 % Eosinophils (%) (Auto) 2 0-10 % Basophils (%) (Auto) 1 0-10 % Neutrophils # (Auto) 4.0 1.8-7.8 10^3/uL Lymphocytes # (Auto) 3.4 1.0-4.0 10^3/uL Monocytes # (Auto) 0.6 0.0-1.0 10^3/uL Eosinophils # (Auto) 0.2 0.0-0.3 10^3/uL Basophils # (Auto) 0.1 0.0-0.1 10^3/uL Immature Granulocyte # (Auto) 0.0 0.0-0.1 10^3/uL Prothrombin Time 12.9 12.2-14.7 SEC INR Comment 0.9 0.8-1.4 Activated Partial Thromboplast Time 28 24-35 SEC Sodium Level 141 135-145 MMOL/L Potassium Level 3.2 L 3.6-5.0 MMOL/L Chloride Level 106 98-107 MMOL/L Carbon Dioxide Level 24 21-32 MMOL/L Anion Gap 11 5-14 MMOL/L Blood Urea Nitrogen 12 7-18 MG/DL Creatinine 0.79 0.60-1.30 MG/DL Estimat Glomerular Filtration Rate 92 BUN/Creatinine Ratio 15 Glucose Level 92 70-105 MG/DL Calcium Level 9.4 8.5-10.1 MG/DL Corrected Calcium 9.2 8.5-10.1 MG/DL Magnesium Level 1.8 1.6-2.4 MG/DL Total Bilirubin 0.3 0.1-1.0 MG/DL Aspartate Amino Transf (AST/SGOT) 16 5-34 U/L Alanine Aminotransferase (ALT/SGPT) 11 0-55 U/L Alkaline Phosphatase 74 40-136 U/L Myoglobin 38.5 10.0-92.0 NG/ML Troponin I < 0.028 <0.028 NG/ML Total Protein 7.5 6.4-8.2 GM/DL Albumin 4.2 3.2-4.5 GM/DL My Orders Orders - PAPITO RUFF Ekg Tracing (02/06/22 21:51) Continuous Ekg Monitoring (02/06/22 21:51) Cbc With Automated Diff (02/06/22 22:07) Magnesium (02/06/22 22:07) Chest 1 View, Ap/Pa Only (02/06/22 22:07) Comprehensive Metabolic Panel (02/06/22 22:07) Myoglobin Serum (02/06/22 22:07) Protime With Inr (02/06/22 22:07) Partial Thromboplastin Time (02/06/22 22:07) O2 (02/06/22 22:07) Lipid Panel (02/07/22 06:00) Ed Iv/Invasive Line Start (02/06/22 22:07) Troponin I Jordy (02/06/22 22:07) Nitroglycerin 0.4 Mg Btl 25's (Nitrostat (02/06/22 22:15) Aspirin Chewable Tablet (Baby Aspirin Ch (02/06/22 22:15) Clopidogrel Tablet (Plavix Tablet) (02/06/22 22:15) Clopidogrel Tablet (Plavix Tablet) (02/06/22 23:30) Enoxaparin Injection (Lovenox Injection) (02/06/22 23:30) Medications Given in ED Current Medications Medications Dose Ordered Sig/Jocelyne Route Start Time Stop Time Status Last Admin Dose Admin Aspirin 162 mg ONCE ONCE PO 02/06/22 22:15 02/06/22 22:16 DC 02/06/22 22:26 162 MG Clopidogrel Bisulfate 75 mg ONCE ONCE PO 02/06/22 22:15 02/06/22 22:16 DC 02/06/22 22:26 75 MG Nitroglycerin 0.4 mg UD PRN SL 02/06/22 22:15 02/06/22 22:27 0.4 MG Vital Signs/I&O 02/06/22 21:53 Pulse 74 Resp 18 B/P (MAP) 124/91 (102) Pulse Ox 97 O2 Delivery Room Air Blood Pressure Mean: 102 Progress Progress Note #1: Time: 22:15 Progress Note We will give the patient Plavix, aspirin and check labs. She has a high risk given her cardiac equivalent risk factors and her very convincing exertion depe ndent chest pain. We will trial a dose of nitroglycerin. Based on her labs we will then call Dr. Adrian seek an observation for closer control of her symptoms. Progress Note #2: Time: 23:26 Progress Note After a single dose of nitroglycerin the patient was not having any more chest pain. Initial ECG Impression Date: Feb 06, 2022 Initial ECG Impression Time: 21:45 Initial ECG Rate: 73 Initial ECG Rhythm: Normal Sinus Initial ECG Intervals: Normal Initial ECG Impression: Normal Comment Normal sinus rhythm without clinically relevant ST elevation or depression. LVH noted. Diagnostic Imaging Diagonstic Imaging: Xray Plain Films/CT/US/NM/MRI: chest Comments [facility], [place] NAME: MAITE KLEIN [facility] REC#: [id number] PT STATUS: REG ER : 1970 PHYSICIAN: PAPITO RUFF MD ADMIT DATE: 02/06/22/ER Signed Date of Exam:02/06/22 CHEST 1 VIEW, AP/PA ONLY PATIENT HISTORY: Chest pain. TECHNIQUE: Single frontal view of the chest. COMPARISON: 04/01/2019 FINDINGS: The lung volumes are normal. No focal consolidation is seen. No large pleural effusion or pneumothorax is seen. The cardiomediastinal silhouette is normal in size and contour. No acute osseous abnormality is seen. IMPRESSION: No acute pulmonary abnormality seen. Dictated by: Dictated on workstation # [id number] Dict: 02/06/222243 Trans: 02/06/222248 CVB [id number] Interpreted by: ARLENE CLARKE MD Electronically signed by: ARLENE CLARKE MD 02/06/222248 Reviewed: Reviewed by Me Departure Communication (Admissions) Time/Spoke to Admitting Phy: 23:15 Discussed the case with Dr. Amezquita and she agrees to admit the patient with cardiology consult. Time/Spoke to Consulting Phy: 23:08 Discussed the case with Dr. Adrian, cardiology. He recommends we give her 300 mg of Plavix now, 325 mg of aspirin and start Lovenox 1 mg/kg. Put in consult in the morning for Dr. Valdez, cardiology. Impression Primary Impression: Unstable angina Disposition: ADMITTED INPATIENT Condition: Stable Admissions Decision to Admit Reason: Admit from ER (General) Decision to Admit/Date: Feb 06, 2022 Time/Decision to Admit Time: 23:00 Departure-Patient Inst. Referrals: NO,LOCAL PHYSICIAN (PCP/Family) Primary Care Physician PAPITO RUFF Feb 06, 2022 22:16
[2022-02-06 22:22] LABS: BASOPHILS # (AUTO) 0.1 10^3/uL (0.0-0.1); BASOPHILS % (AUTO) 1 % (0-10); EOSINOPHILS # (AUTO) 0.2 10^3/uL (0.0-0.3); EOSINOPHILS % (AUTO) 2 % (0-10); HEMATOCRIT 43 % (35-52); HEMOGLOBIN 14.7 g/dL (11.5-16.0); LYMPHOCYTES # (AUTO) 3.4 10^3/uL (1.0-4.0); LYMPHOCYTES % (AUTO) 41 % (12-44); MEAN CORPUSCULAR HEMOGLOBIN 30 pg (25-34); MEAN CORPUSCULAR HGB CONC 34 g/dL (32-36); MEAN CORPUSCULAR VOLUME 88 fL (80-99); MEAN PLATELET VOLUME 9.8 fL (9.0-12.2); MONOCYTES # (AUTO) 0.6 10^3/uL (0.0-1.0); MONOCYTES % (AUTO) 7 % (0-12); NEUTROPHILS % (AUTO) 49 % (42-75); PLATELET COUNT 255 10^3/uL (130-400); WHITE BLOOD COUNT 8.3 10^3/uL (4.3-11.0)
[2022-02-06 22:26] LABS: ALBUMIN 4.2 GM/DL (3.2-4.5)
[2022-02-06 22:27] LABS: POTASSIUM 3.2 MMOL/L (3.6-5.0)
[2022-02-06] MEDS: NITROGLYCERIN 0.4 MG SL TABS BTL 25'S SL PRN ×2 (22:27→23:57)
[2022-02-06 22:28] LABS: CALCIUM 9.4 MG/DL (8.5-10.1)
[2022-02-06 22:29] LABS: INR 0.9 (0.8-1.4); PROTHROMBIN TIME PATIENT 12.9 SEC (12.2-14.7); TOTAL PROTEIN 7.5 GM/DL (6.4-8.2)
[2022-02-06 22:31] LABS: BILIRUBIN,TOTAL 0.3 MG/DL (0.1-1.0)
[2022-02-06 22:33] LABS: CREATININE SERUM 0.79 MG/DL (0.60-1.30)
[2022-02-06 22:35] LABS: MAGNESIUM 1.8 MG/DL (1.6-2.4)
--- NOTE | 2022-02-06 22:46 | Diagnostic Imaging Report ---
PATIENT HISTORY: Chest pain. TECHNIQUE: Single frontal view of the chest. COMPARISON: 04/01/2019 FINDINGS: The lung volumes are normal. No focal consolidation is seen. No large pleural effusion or pneumothorax is seen. The cardiomediastinal silhouette is normal in size and contour. No acute osseous abnormality is seen. IMPRESSION: No acute pulmonary abnormality seen. Dictated by: Dictated on workstation # [id number]
[2022-02-06] MEDS ORDERED: ENOXAPARIN 100 MG/1 ML (LOVENOX) SYR SC ONE (23:30)
[2022-02-07] VITALS (10 sets, daily range): BP systolic 96–131; BP diastolic 61–86
[2022-02-07] MEDS ORDERED: morphine INJ 4 MG/ML 1 ML (VIAL/SYRINGE) IV PRN (00:45)
[2022-02-07] MEDS ORDERED: NITROGLYCERIN 0.4 MG SL TABS BTL 25'S SL PRN ×3 (00:45→09:15)
[2022-02-07] MEDS ORDERED: CATHETER FLUSH 10 ML SYR IVP PRN (00:45)
[2022-02-07] MEDS ORDERED: ACETAMINOPHEN 325 MG TABLET PO PRN (00:45)
[2022-02-07] MEDS ORDERED: ONDANSETRON 4 MG/2 ML (SDV) Z0FRAN IV PRN (00:45)
[2022-02-07] MEDS: CATHETER FLUSH 10 ML SYR IVP SCH ×2 (05:11→14:08)
[2022-02-07 05:48] LABS: CHLORIDE 105 MMOL/L (98-107); POTASSIUM 2.9 MMOL/L (3.6-5.0); SODIUM 140 MMOL/L (135-145)
[2022-02-07 05:50] LABS: CALCIUM 8.9 MG/DL (8.5-10.1); GLUCOSE 86 MG/DL (70-105)
[2022-02-07 05:52] LABS: CARBON DIOXIDE 25 MMOL/L (21-32)
[2022-02-07 05:54] LABS: CREATININE SERUM 0.71 MG/DL (0.60-1.30); GFR ESTIMATED 104
[2022-02-07 05:55] LABS: BUN/CREATININE RATIO 17
[2022-02-07 06:01] LABS: BASOPHILS # (AUTO) 0.1 10^3/uL (0.0-0.1); BASOPHILS % (AUTO) 1 % (0-10); EOSINOPHILS # (AUTO) 0.2 10^3/uL (0.0-0.3); EOSINOPHILS % (AUTO) 3 % (0-10); HEMATOCRIT 41 % (35-52); HEMOGLOBIN 13.6 g/dL (11.5-16.0); LYMPHOCYTES # (AUTO) 3.1 10^3/uL (1.0-4.0); LYMPHOCYTES % (AUTO) 46 % (12-44); MEAN CORPUSCULAR HEMOGLOBIN 30 pg (25-34); MEAN CORPUSCULAR HGB CONC 34 g/dL (32-36); MEAN CORPUSCULAR VOLUME 90 fL (80-99); MEAN PLATELET VOLUME 10.5 fL (9.0-12.2); MONOCYTES # (AUTO) 0.6 10^3/uL (0.0-1.0); MONOCYTES % (AUTO) 9 % (0-12); NEUTROPHILS # (AUTO) 2.9 10^3/uL (1.8-7.8); NEUTROPHILS % (AUTO) 42 % (42-75); PLATELET COUNT 213 10^3/uL (130-400); WHITE BLOOD COUNT 6.8 10^3/uL (4.3-11.0)
[2022-02-07 06:05] LABS: TRIGLYCERIDES 118 MG/DL (<150); VLDL CHOLESTEROL 24 MG/DL (5-40)
[2022-02-07 06:10] LABS: CHOLESTEROL 133 MG/DL (< 200)
[2022-02-07 06:11] LABS: HDL CHOLESTEROL 37 MG/DL (40-60)
[2022-02-07] MEDS ORDERED: POTASSIUM CL 10MEQ/50ML IVPB 50 ML IV SCH (08:00)
[2022-02-07] MEDS ORDERED: MAGNESIUM 1 GM/100 ML IVPB 100 ML IV SCH (08:00)
[2022-02-07] MEDS ORDERED: KCL 20 MEQ TAB (K-DUR) PO SCH (08:00)
[2022-02-07] MEDS: POTASSIUM CL 10MEQ/50ML IVPB 50 ML IV SCH ×5 (08:36→15:35)
[2022-02-07] MEDS: NS IV 500 ML 500 ML IV PRN ×2 (08:36→14:08)
--- NOTE | 2022-02-07 08:57 | Consultation-Cardiology ---
HPI-Cardiology Cardiology Consultation: Date of Consultation 02/07/22 Date of Admission 02/06/22 Attending Physician Neli,Local Physician Admitting Physician Admitting Physician: Shreya Amezquita DO Attending Physician: Shreya Amezquita DO Consulting Physician RADHA SINGER JR, MD HPI: Time Seen by a Provider: 09:00 Chief Complaint: REASON FOR CONSULTATION: Chest pain. I had the pleasure of seeing Felecia on the cardiac stepdown unit at [facility] in [place], [place] today. She is known to me from a previous hospitalization. She has a known history of coronary artery disease with a non- ST elevation myocardial infarction in October 2021 that was treated with 1 drug- eluting stent to the distal right coronary artery. She has moderate residual disease in a diagonal branch and mid right coronary artery. She had been doing well up until yesterday. Before she went to work, she had a brief episode of palpitations with the sensation of a rapid heartbeat which occurred at rest. She denies associated symptoms. This resolved spontaneously. 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 While she was at work she started developing substernal chest tightness. She has had this int ermittently ever since her heart attack but the episodes have been very brief and mild. Yesterday the chest discomfort was more intense and then radiated to her left arm and made her feel short of breath. She told her boss who then brought her to the emergency room for further evaluation. In the emergency room she was given a total of 3 sublingual nitroglycerin intermittently and the chest discomfort ultimately resolved. She was then admitted to the cardiac stepdown unit for observation. This morning, she denies any further chest discomfort. She does get some dyspnea on exertion from time to time but this has not been getting any worse than usual. She denies paroxysmal nocturnal dyspnea, orthopnea, lightheadedness, syncope, or ankle edema. About 2 weeks ago she ran out of her refills of clopidogrel and stopped this medication. She has still been taking her aspirin, carvedilol and rosuvastatin. She is still smoking about 1 pack of cigarettes per day. Because of the chest pain, a cardiology consultation was requested. Certain portions of this document may have been dictated utilizing voice recognition technology. Inherent to this technology, typographical and grammatical errors may exist. As much as I am diligent to identify and correct these mistakes, some errors may remain in the document. Review of Systems-Cardiology Review of Systems Other comments Review of 10 organ systems is as per the history of present illness, otherwise negative. All Other Systems Reviewed Negative Unless Noted: Yes XYJ-Ctmwrv-Esmruh Hx Patient Social History Smoking Status: Current Everyday Smoker 2nd Hand Smoke Exposure: Yes Have you traveled recently?: No Alcohol Use?: No Pt feels they are or have been: No Tobacco type used: Cigarettes Past Medical History PMH As described under Assessment. Family Medical History Family Medical History: The patient does not know of any family history of premature coronary artery disease in first-degree relatives. Allergies and Home Medications Allergies Coded Allergies: coffee (Coffea arabica) (Unverified Allergy, Unknown, HIVES, 10/25/21) lamotrigine (Verified Allergy, Unknown, 02/03/19) Patient Home Medication List Home Medication List Reviewed: Yes Aspirin (Aspirin EC) 81 Mg Tablet.dr, 81 MG PO DAILY, (Reported) Entered as Reported by: BLAINE MANUEL on 02/07/221052 Last Action: Reviewed Carvedilol (Carvedilol) 3.125 Mg Tablet, 3.125 MG PO BID, (Reported) Entered as Reported by: BLAINE MANUEL on 02/07/221052 Last Action: Reviewed Fluticasone Propionate (Flonase Allergy Relief) 50 Mcg/Actuation [place].susp, 1 S PRAY NSEACH BID, (Reported) Entered as Reported by: BLAINE MANUEL on 02/07/221052 Last Action: Reviewed Ibuprofen (Ibuprofen) 200 Mg Tablet, 800 MG PO Q8H PRN for PAIN-MILD (1-4), (Reported) Entered as Reported by: BLAINE MANUEL on 10/24/21 1525 Last Action: Reviewed Isosorbide Mononitrate (Isosorbide Mononitrate ER) 30 Mg Tab.er.24h, 30 MG PO DAILY, (Reported) Entered as Reported by: BLAINE MANUEL on 02/07/221052 Last Action: Reviewed Nitroglycerin (Nitroglycerin) 0.4 Mg Tab.subl, 0.4 MG SL UD PRN for CHEST PAIN, (Reported) Entered as Reported by: BLAINE MANUEL on 9/29/22 1053 Last Action: Reviewed Rosuvastatin Calcium (Rosuvastatin Calcium) 20 Mg Tablet, 20 MG PO HS, (Reported) Entered as Reported by: BLAINE MANUEL on 02/07/22 1053 Last Action: Reviewed Discontinued Medications Aspirin (Aspirin EC) 81 Mg Tablet.dr, 81 MG PO DAILY Discontinued Reason: No Longer Taking Prescribed by: RADHA SINGER JR, MD on 10/25/21807 Last Action: Discontinued Carvedilol (Carvedilol) 3.125 Mg Tablet, 3.125 MG PO BID Discontinued Reason: Duplicate Order Prescribed by: RADHA SINGER JR, MD on 10/25/21807 Last Action: Discontinued Nitroglycerin (Nitroglycerin) 0.4 Mg Tab.subl, 0 MG SL NEEDED PRN for chest pain Discontinued Reason: Duplicate Order Prescribed by: RADHA SINGER JR, MD on 10/25/21807 Last Action: Discontinued Rosuvastatin Calcium (Rosuvastatin Calcium) 20 Mg Tablet, 20 MG PO HS Discontinued Reason: Duplicate Order Prescribed by: RADHA SINGER JR, MD on 10/25/21807 Last Action: Discontinued Ticagrelor (Brilinta) 90 Mg Tablet, 90 MG PO Q12H Prescribed by: RADHA SINGER JR, MD on 10/25/21807 Last Action: Discontinued Exam Vital Signs Vital Signs Date Time Temp Pulse Resp B/P (MAP) Pulse Ox O2 Delivery O2 Flow Rate FiO2 02/07/22 08:00 96 Room Air 02/07/22 07:33 36.2 56 18 109/76 (87) Physical Exam General: Alert. No acute distress. Well nourished and appears stated age. She is overweight. Eye: Extraocular movements are intact. Conjunctivae are clear. There are no xanthelasma. HENT: Normocephalic. Atraumatic. Carotid pulsations 2/2 without bruits. Neck: Jugular venous pressure does not appear elevated. No thyromegaly appreciated. Respiratory: Lungs are clear to auscultation. Respirations are non-labored. Breath sounds are equal. Symmetrical chest wall expansion. Cardiovascular: Normal rate. Regular rhythm. No murmur. No gallop. Point of maximal impulse is not appear displaced. Good pulses equal in all extremities. No edema. Gastrointestinal: Soft. Normal bowel sounds. Skin: Skin turgor is normal. There is no pallor. Musculoskeletal: No kyphosis or scoliosis appreciated. Neurologic: Alert and oriented to person, place, time. Cranial nerves 3-12 appear grossly intact. The patient has good motor tone strength in the upper and lower extremities bilaterally. Psychiatric: Cooperative. Appropriate mood & affect. Labs Laboratory Tests Test 02/06/22 21:58 02/07/22 05:15 Range/Units White Blood Count 8.3 6.8 4.3-11.0 10^3/uL Red Blood Count 4.90 4.53 3.80-5.11 10^6/uL Hemoglobin 14.7 13.6 11.5-16.0 g/dL Hematocrit 43 41 35-52 % Mean Corpuscular Volume 88 90 80-99 fL Mean Corpuscular Hemoglobin 30 30 25-34 pg Mean Corpuscular Hemoglobin Concent 34 34 32-36 g/dL Red Cell Distribution Width 13.2 13.5 10.0-14.5 % Platelet Count 255 213 130-400 10^3/uL Mean Platelet Volume 9.8 10.5 9.0-12.2 fL Immature Granulocyte % (Auto) 0 0 % Neutrophils (%) (Auto) 49 42 42-75 % Lymphocytes (%) (Auto) 41 46 H 12-44 % Monocytes (%) (Auto) 7 9 0-12 % Eosinophils (%) (Auto) 2 3 0-10 % Basophils (%) (Auto) 1 1 0-10 % Neutrophils # (Auto) 4.0 2.9 1.8-7.8 10^3/uL Lymphocytes # (Auto) 3.4 3.1 1.0-4.0 10^3/uL Monocytes # (Auto) 0.6 0.6 0.0-1.0 10^3/uL Eosinophils # (Auto) 0.2 0.2 0.0-0.3 10^3/uL Basophils # (Auto) 0.1 0.1 0.0-0.1 10^3/uL Immature Granulocyte # (Auto) 0.0 0.0 0.0-0.1 10^3/uL Prothrombin Time 12.9 12.2-14.7 SEC INR Comment 0.9 0.8-1.4 Activated Partial Thromboplast Time 28 24-35 SEC Sodium Level 141 140 135-145 MMOL/L Potassium Level 3.2 L 2.9 L 3.6-5.0 MMOL/L Chloride Level 106 105 98-107 MMOL/L Carbon Dioxide Level 24 25 21-32 MMOL/L Anion Gap 11 10 5-14 MMOL/L Blood Urea Nitrogen 12 12 7-18 MG/DL Creatinine 0.79 0.71 0.60-1.30 MG/DL Estimat Glomerular Filtration Rate 92 104 BUN/Creatinine Ratio 15 17 Glucose Level 92 86 70-105 MG/DL Calcium Level 9.4 8.9 8.5-10.1 MG/DL Corrected Calcium 9.2 8.5-10.1 MG/DL Magnesium Level 1.8 1.8 1.6-2.4 MG/DL Total Bilirubin 0.3 0.1-1.0 MG/DL Aspartate Amino Transf (AST/SGOT) 16 5-34 U/L Alanine Aminotransferase (ALT/SGPT) 11 0-55 U/L Alkaline Phosphatase 74 40-136 U/L Myoglobin 38.5 10.0-92.0 NG/ML Troponin I < 0.028 < 0.028 <0.028 NG/ML Total Protein 7.5 6.4-8.2 GM/DL Albumin 4.2 3.2-4.5 GM/DL Triglycerides Level 118 <150 MG/DL Cholesterol Level 133 < 200 MG/DL LDL Cholesterol Direct 69 1-129 MG/DL VLDL Cholesterol 24 5-40 MG/DL HDL Cholesterol 37 L 40-60 MG/DL ECG Impression ECG Comment The first electrocardiogram in the emergency room on 02/06 showed sinus rhythm with left atrial abnormality and borderline left axis deviation at -23. The second electrocardiogram obtained early this morning on the cardiac stepdown unit showed sinus rhythm with left atrial abnormality and nonspecific anterior T wave changes which were new compared to the previous tracing. Repeat electrocardiogram from this morning shows sinus rhythm with left atrial abnormality and no significant T wave abnormalities. Diagnosis/Problems Diagnosis/Problems (1) Coronary artery disease with unstable angina pectoris Assessment & Plan: She had 2 negative troponin levels. I was concerned that she may have had some dynamic EKG changes in the anterior leads but some of this may have just been due to lead placement. I suspect her symptoms may have been related to stopping clopidogrel 2 weeks ago. I will obtain a follow-up echocardiogram. If there are no significant regional wall motion abnormalities, then she can probably be discharged home later. I will also start her on a low- dose of long-acting nitrates which I will continue for about the next month. (2) Mixed hyperlipidemia Assessment & Plan: Continue rosuvastatin. Her LDL level is well controlled. (3) Cigarette smoker Assessment & Plan: She needs to quit smoking. She has been counseled in this regard. (4) Obesity Assessment & Plan: She needs to work on weight loss. RADHA SINGER JR, MD Feb 07, 2022 08:57
[2022-02-07] MEDS ORDERED: ENOXAPARIN 40 MG/0.4 ML (LOVENOX) SYR SC SCH (09:00)
[2022-02-07] MEDS ORDERED: CLOPIDOGREL 75 MG (PLAVIX) TABLET PO SCH (09:00)
[2022-02-07] MEDS ORDERED: ASPIRIN E.C. 81 MG (ECOTRIN) TAB PO SCH ×2 (09:00)
[2022-02-07] MEDS ORDERED: ENOXAPARIN 100 MG/1 ML (LOVENOX) SYR SC SCH ×2 (09:00)
[2022-02-07] MEDS ORDERED: CLOPIDOGREL 300 MG (PLAVIX) TABLET PO NR (09:00)
[2022-02-07] MEDS ORDERED: NITR0.4T39 SL (10:53)
[2022-02-07] MEDS ORDERED: CARV3.122 PO (10:53)
[2022-02-07] MEDS ORDERED: ISOS30TA82 PO ×2 (10:53→11:08)
[2022-02-07] MEDS ORDERED: ASPI-1238 PO (10:53)
[2022-02-07] MEDS ORDERED: ROSU20TA32 PO (10:53)
[2022-02-07] MEDS ORDERED: FLUT9.9S NSEACH (10:53)
[2022-02-07] MEDS ORDERED: ISOSORBIDE MONONITRATE 30 MG (IMDUR) TAB PO NR (11:00)
[2022-02-07] MEDS ORDERED: CLOP75TA28 PO (11:08)
--- NOTE | 2022-02-07 15:10 | Short Stay Summary-Hospitalist ---
History of Present Illness HPI/Chief Complaint Felecia Callaway is a 51 year old female with PMH HTN, HLD, CAD, who presented with chest pain. She had radiation to her bilateral arms. She also had some nausea. She denies shortness of breath. She denies fevers and chills. Upon my exam, her chest pain is resolved. She is having no ongoing symptoms and she has returned to her baseline. Source: patient Exam Limitations: no limitations Date Seen 02/07/22 Time Seen by a Provider: 09:40 Attending Physician Neli,Local Physician PCP Admitting Physician: Shreya Amezquita DO Attending Physician: Shreya Amezquita DO Referring Physician Date of Admission Feb 06, 2022 at 23:25 Home Medications & Allergies Home Medications Reviewed patient Home Medication Reconciliation performed by pharmacy medication reconciliations registered respiratory technician and/or nursing. Patients Allergies have been reviewed. Allergies Allergies Coded Allergies coffee (Coffea arabica) (Unverified Allergy, Unknown, HIVES, 10/25/21) lamotrigine (Verified Allergy, Unknown, 02/03/19) Past Whawfsk-Ftiind-Cgaqcb Hx Patient Social History Tobacco Use?: Yes Tobacco type used: Cigarettes Smoking Status: Current Everyday Smoker Smokeless Tobacco Frequency: Never a User Use of E-Cig and/or Vaping dev: No Substance use?: No Alcohol Use?: No Pt feels they are or have been: No Immunizations Up To Date Tetanus Booster (TDap): Unknown Hepatitis A: Yes Hepatitis B: Yes Seasonal Allergies Seasonal Allergies: No Current Status status: No Advance Directives: No Communicates: Verbally Primary Language: Serbian Preferred Spoken Language: Serbian Is interpretation needed?: No Sensory deficits: Vision impairment Implanted or Applied Medical D: Stents Past Medical History Surgeries: Coronary Stent Coronary Artery Disease, Hypertension Blood Disorders: No surgery- ectopic Family Medical History Heart Disease, Stroke Review of Systems Constitutional: no symptoms reported EENTM: no symptoms reported Cardiovascular: chest pain Gastrointestinal: nausea Physical Exam Physical Exam Vital Signs Vital Signs - First Documented 02/06/22 21:53 Pulse 74 Resp 18 B/P (MAP) 124/91 (102) Pulse Ox 97 O2 Delivery Room Air Capillary Refill : Less Than 3 Seconds Height, Weight, BMI Height: 5'6.00" Weight: 200lbs. oz. 90.422911zd; 30.43 BMI Method:Stated General Appearance: No Apparent Distress, Obese HEENT: PERRL/EOMI, Pharynx Normal Neck: Normal Inspection, Supple Respiratory: Lungs Clear, Normal Breath Sounds, No Respiratory Distress Cardiovascular: Regular Rate, Rhythm, No Edema, No Murmur Gastrointestinal: Normal Bowel Sounds, Non Tender, Soft Extremity: Normal Inspection, No Pedal Edema Neurologic/Psychiatric: Alert, Oriented x3, Normal Mood/Affect Skin: Normal Color, Warm/Dry Results Results/Procedures Labs Laboratory Tests 02/06/22 21:58 02/07/22 05:15 Patient resulted labs reviewed. Imaging: Reviewed Imaging Report Short Stay Diagnosis Discharge Diagnosis-Short Stay Admission Diagnosis Chest pain Final Discharge Diagnosis Chest pain Conclusion Plan Chest pain CAD HTN HLD Troponins and EKG unremarkable Echo with normal EF, no wall motion abnormalities Chest pain resolved Cardiology consulted Continue ASA Started on Plavix Begin Imdur Contiue Coreg and statin Follow up in Cardiology clinic Establish with a PCP Diagnosis/Problems Diagnosis/Problems (1) Chest pain Status: Acute (2) CAD (coronary artery disease) Status: Acute (3) HTN (hypertension) Status: Chronic (4) HLD (hyperlipidemia) Status: Chronic Clinical Quality Measures AMI/AHF: ASA po Prior to arrival: Yes (162.5) Smoking Cessation Counseling: Counseling-Symptomatic: 3-10 Minutes SOFY THOMPSON MD Feb 07, 2022 15:10
[2022-02-07] MEDS ORDERED: ROSUVASTATIN 20 MG (CRESTOR) TABLET PO SCH (21:00)
[2022-02-08] MEDS ORDERED: ENOXAPARIN 40 MG/0.4 ML (LOVENOX) SYR SC SCH (09:00)
[2022-02-08] MEDS ORDERED: CLOPIDOGREL 75 MG (PLAVIX) TABLET PO SCH (09:00)
[2022-02-08] MEDS ORDERED: ISOSORBIDE MONONITRATE 30 MG (IMDUR) TAB PO SCH (09:00)
== END 2022-02-07 15:35 | disposition home or self-care (01) ==
LOC: EDUNIT# 21:49 → ER 21:50 → CSD 23:25 → EDLOC 23:25 → INTOOBSV 23:25
PROVIDERS: ADMIT Internal Medicine; ATTEND Internal Medicine
DX: R07.9 Chest pain, unspecified (principal); I25.10 Atherosclerotic heart disease of native coronary artery without angina pectoris; I10 Essential (primary) hypertension; E78.5 Hyperlipidemia, unspecified; F17.210 Nicotine dependence, cigarettes, uncomplicated
CPT/HCPCS: 71045; 80048; 80053; 80061; 83735 ×2; 83874; 84484 ×2; 85025 ×2; 85610; 85730; 93005 ×2; 93308; 96361; 96375; 96376; 99284; G0378; 36415

== ENCOUNTER 2022-09-17 22:37 | Emergency (ER) | payer SELFPAY ==
[~2022-09-17] VITALS: Ht 168 cm; Wt 86.0 kg
[~2022-09-17 22:37] MED LIST changes: +CLOP75TA28 PO; +FLUT9.9S NSEACH; +ISOS30TA82 PO; +NITR0.4T39 SL
--- NOTE | 2022-09-17 22:50 | ED Chest Pain ---
General Chief Complaint: Chest Pain Stated Complaint: CHEST PAIN Nursing Triage Note: Pt presents via ems with c/o chest pain that started at approx 1600 yesterday. She states she took ASA x2 and 1 nitro at 2216 and arrived pain free. Pt has a hx of DC on 10/22/21. Source: patient, EMS Exam Limitations: no limitations History of Present Illness Date Seen by Provider: September 17, 2022 Time Seen by Provider: 22:39 Initial Comments 52-year-old female with history of coronary artery disease with stents placed October of last year presents to the emergency department via EMS for chest pain. Symptoms started at 4:00 yesterday afternoon and has been relatively constant until she took a nitroglycerin about 30 minutes prior to arrival and she is now pain-free. She describes her pain as sharp stabbing in her mid central chest wi th radiation into the right anterior chest. No aggravating or alleviating factors. No associated symptoms. She took a full strength aspirin this evening. Did not feel similar to her heart attack type pain that she had a year ago. She denies any recent fevers chills cough. No known injuries. All other systems reviewed and negative except documented per HPI. Voice recognition software was used to help create this chart Allergies and Home Medications Allergies Coded Allergies: coffee (Coffea arabica) (Unverified Allergy, Unknown, HIVES, 10/25/21) lamotrigine (Verified Allergy, Unknown, 02/03/19) Patient Home Medication List Home Medication List Reviewed: Yes Aspirin (Aspirin EC) 81 Mg Tablet.dr, 81 MG PO DAILY, (Reported) Entered as Reported by: BLAINE MANUEL on 02/07/22 1053 Carvedilol (Carvedilol) 3.125 Mg Tablet, 3.125 MG PO BID, (Reported) Entered as Reported by: BLAINE MANUEL on 02/07/22 1053 Clopidogrel Bisulfate (Clopidogrel) 75 Mg Tablet, 75 MG PO DAILY Prescribed by: RADHA SINGER JR, MD on 02/07/22 1108 Fluticasone Propionate (Flonase Allergy Relief) 50 Mcg/Actuation [place].susp, 1 SPRAY NSEACH BID, (Reported) Entered as Reported by: BLAINE MANUEL on 02/07/22 1053 Ibuprofen (Ibuprofen) 200 Mg Tablet, 800 MG PO Q8H PRN for PAIN-MILD (1-4), (Rep orted) Entered as Reported by: BLAINE MANUEL on 10/24/21 1525 Isosorbide Mononitrate (Isosorbide Mononitrate ER) 30 Mg Tab.er.24h, 30 MG PO DAILY Prescribed by: RADHA SINGER JR, MD on 02/07/22 1108 Nitroglycerin (Nitroglycerin) 0.4 Mg Tab.subl, 0.4 MG SL UD PRN for CHEST PAIN, (Reported) Entered as Reported by: BLAINE MANUEL on 02/07/22 1053 Rosuvastatin Calcium (Rosuvastatin Calcium) 20 Mg Tablet, 20 MG PO HS, (Reported) Entered as Reported by: BLAINE MANUEL on 02/07/22 1053 Review of Systems Review of Systems Constitutional: see HPI Past Imzsgcp-Jqmoig-Dfgrhk Hx Patient Social History Tobacco Use?: No Use of E-Cig and/or Vaping dev: No Substance use?: No Alcohol Use?: No Immunizations Up To Date Influenza Vaccine Up-to-Date: No; Not Current Seasonal Allergies Seasonal Allergies: No Past Medical History Surgeries: Yes (ectopic , back surgery) Coronary Stent Respiratory: No Cardiac: Yes Coronary Artery Disease, Hypertension Neurological: No Genitourinary: No Gastrointestinal: No Musculoskeletal: No Endocrine: No HEENT: No Cancer: No Psychosocial: No Integumentary: No Blood Disorders: No Family Medical History Reviewed Nursing Family Hx Heart Disease, Stroke Physical Exam Vital Signs Vital Signs - First Documented 09/17/22 22:41 Temp 36.6 Pulse 68 Resp 16 B/P (MAP) 126/84 (98) Capillary Refill : Less Than 3 Seconds Height, Weight, BMI Height: 5'6.00" Weight: 200lbs. oz. 90.069447cg; 30.00 BMI Method:Stated General Appearance: No Apparent Distress, WD/WN HEENT: Normal ENT Inspection, Pharynx Normal Neck: Normal Inspection, Non Tender, Supple Respiratory: Chest Non Tender, Lungs Clear, Normal Breath Sounds, No Accessory Muscle Use, No Respiratory Distress Cardiovascular: Regular Rate, Rhythm, No Murmur, Normal Peripheral Pulses Gastrointestinal: Normal Bowel Sounds, No Organomegaly, No Pulsatile Mass, Non Tender, Soft Extremity: Normal Capillary Refill, Normal Inspection, Normal Range of Motion, Non Tender, No Calf Tenderness Neurologic/Psychiatric: Alert, Oriented x3, Normal Mood/Affect Skin: Normal Color, Warm/Dry Progress/Results/Core Measures Results/Orders Lab Results Laboratory Tests Test 09/17/22 22:45 Range/Units White Blood Count 9.0 4.3-11.0 10^3/uL Red Blood Count 4.83 3.80-5.11 10^6/uL Hemoglobin 14.6 11.5-16.0 g/dL Hematocrit 42 35-52 % Mean Corpuscular Volume 87 80-99 fL Mean Corpuscular Hemoglobin 30 25-34 pg Mean Corpuscular Hemoglobin Concent 35 32-36 g/dL Red Cell Distribution Width 13.7 10.0-14.5 % Platelet Count 236 130-400 10^3/uL Mean Platelet Volume 9.9 9.0-12.2 fL Immature Granulocyte % (Auto) 0 % Neutrophils (%) (Auto) 49 42-75 % Lymphocytes (%) (Auto) 39 12-44 % Monocytes (%) (Auto) 8 0-12 % Eosinophils (%) (Auto) 3 0-10 % Basophils (%) (Auto) 1 0-10 % Neutrophils # (Auto) 4.4 1.8-7.8 10^3/uL Lymphocytes # (Auto) 3.5 1.0-4.0 10^3/uL Monocytes # (Auto) 0.7 0.0-1.0 10^3/uL Eosinophils # (Auto) 0.2 0.0-0.3 10^3/uL Basophils # (Auto) 0.1 0.0-0.1 10^3/uL Immature Granulocyte # (Auto) 0.0 0.0-0.1 10^3/uL Sodium Level 138 135-145 MMOL/L Potassium Level 3.2 L 3.6-5.0 MMOL/L Chloride Level 105 98-107 MMOL/L Carbon Dioxide Level 21 21-32 MMOL/L Anion Gap 12 5-14 MMOL/L Blood Urea Nitrogen 9 7-18 MG/DL Creatinine 0.79 0.60-1.30 MG/DL Estimat Glomerular Filtration Rate 91 BUN/Creatinine Ratio 11 Glucose Level 103 70-105 MG/DL Calcium Level 9.1 8.5-10.1 MG/DL Corrected Calcium 9.2 8.5-10.1 MG/DL Magnesium Level 1.8 1.6-2.4 MG/DL Total Bilirubin 0.3 0.1-1.0 MG/DL Aspartate Amino Transf (AST/SGOT) 16 5-34 U/L Alanine Aminotransferase (ALT/SGPT) 12 0-55 U/L Alkaline Phosphatase 69 40-136 U/L Troponin I < 0.028 <0.028 NG/ML Total Protein 7.0 6.4-8.2 GM/DL Albumin 3.9 3.2-4.5 GM/DL My Orders Orders - DANIEL WRIGHT DO Ekg Tracing (09/17/22 22:41) Cbc With Automated Diff (09/17/22 22:47) Magnesium (09/17/22 22:47) Chest 1 View, Ap/Pa Only (09/17/22 22:47) Comprehensive Metabolic Panel (09/17/22 22:47) Ed Iv/Invasive Line Start (09/17/22 22:47) Troponin I Jordy (09/17/22 22:47) Vital Signs/I&O 09/17/22 22:41 Temp 36.6 Pulse 68 Resp 16 B/P (MAP) 126/84 (98) Blood Pressure Mean: 98 Comment Independent review of EKG shows sinus rhythm 65 bpm. Normal intervals. Left axis deviation. No ST or T wave abnormalities. No ectopy. No STEMI. Departure Communication (Admissions) The patient is hemodynamically stable with a nonischemic EKG upon arrival. She has had symptoms for more than 24 hours now consistently except for after she took nitro and she has had no recurrence of symptoms since that time. Troponin is negative. Chest x-ray is negative for pneumothorax, pneumonia. She states the symptoms are not similar to a year ago when she had she had a heart attack. The pain is different in character in a different location and not associated diaphoresis or shortness of breath. Again she has been completely pain-free since a single nitroglycerin. Her heart score is 3 for age, risk factors. And she is at risk for major adverse cardiac events in the next 30 days. We will give her close cardiology follow-up and discharged home in stable condition with strict return precautions. She states understanding. Impression Primary Impression: Chest pain Qualified Codes: R07.9 - Chest pain, unspecified Disposition: 01 HOME, SELF-CARE Condition: Stable Departure-Patient Inst. Referrals: GILBERT BELL MD FACP FACC CCDS NO,LOCAL PHYSICIAN (PCP) Primary Care Physician Patient Instructions: Chest Pain Add. Discharge Instructions: He has been pain-free since taking nitroglycerin. There is no evidence for emergent medical condition at this time. I do recommend you follow-up with Dr. Bell by calling to schedule an appointment. Please return to the emergency department immediately if you have recurrence of chest pain or if your symptoms change in any way concerning to you. All discharge instructions reviewed with patient and/or family. Voiced understanding. DANIEL WRIGHT DO September 17, 2022 22:50
[2022-09-17 22:53] LABS: BASOPHILS # (AUTO) 0.1 10^3/uL (0.0-0.1); BASOPHILS % (AUTO) 1 % (0-10); EOSINOPHILS # (AUTO) 0.2 10^3/uL (0.0-0.3); EOSINOPHILS % (AUTO) 3 % (0-10); HEMATOCRIT 42 % (35-52); HEMOGLOBIN 14.6 g/dL (11.5-16.0); LYMPHOCYTES # (AUTO) 3.5 10^3/uL (1.0-4.0); LYMPHOCYTES % (AUTO) 39 % (12-44); MEAN CORPUSCULAR HEMOGLOBIN 30 pg (25-34); MEAN CORPUSCULAR HGB CONC 35 g/dL (32-36); MEAN CORPUSCULAR VOLUME 87 fL (80-99); MEAN PLATELET VOLUME 9.9 fL (9.0-12.2); MONOCYTES # (AUTO) 0.7 10^3/uL (0.0-1.0); MONOCYTES % (AUTO) 8 % (0-12); NEUTROPHILS # (AUTO) 4.4 10^3/uL (1.8-7.8); NEUTROPHILS % (AUTO) 49 % (42-75); PLATELET COUNT 236 10^3/uL (130-400)
[2022-09-17 23:10] LABS: ALBUMIN 3.9 GM/DL (3.2-4.5)
[2022-09-17 23:11] LABS: POTASSIUM 3.2 MMOL/L (3.6-5.0)
[2022-09-17 23:12] LABS: CALCIUM 9.1 MG/DL (8.5-10.1)
[2022-09-17 23:15] LABS: BILIRUBIN,TOTAL 0.3 MG/DL (0.1-1.0)
[2022-09-17 23:16] LABS: CREATININE SERUM 0.79 MG/DL (0.60-1.30)
[2022-09-17 23:20] LABS: MAGNESIUM 1.8 MG/DL (1.6-2.4)
[2022-09-17 23:37] VITALS: BP 118/75
--- NOTE | 2022-09-18 07:26 | Diagnostic Imaging Report ---
INDICATION: Chest pain COMPARISON: 02/06/2022 FINDINGS: The lungs clear. No failure, effusion or pneumothorax. IMPRESSION: Negative. Dictated by: Dictated on workstation # [id number]
== END 2022-09-17 23:37 | disposition home or self-care (01) ==
LOC: EDUNIT# 22:37 → ER 22:38
DX: R07.9 Chest pain, unspecified (principal); Z95.5 Presence of coronary angioplasty implant and graft; Z28.310 Unvaccinated for COVID-19
CPT/HCPCS: 36415; 71045; 80053; 83735; 84484; 85025; 93005